=== PATIENT | female | born 1950 | race Two or more races ===

== ENCOUNTER → 2019-02-04 | Outpatient (CLI) | payer OTHER ==
[~2019-02-04] MED LIST: ALPRAZOLAM0.5 MG PO; ALPRAzolam 0.25 MG TABLET PO; ATACAND HCT 11 UDTAB PO; ATACAND4 MG PO; Atacand PO; BACTROBAN OINT NASAL; CEFEPIME HCL2 G/VIAL IV; CIPRO I.V.400 MG/201 IV; CLARINEX5 MG/TAB PO; CRESTOR10 MG PO; Cozaar PO; DAKIN S TOP; DAKIN'S473 ML TOP; FAMOTIDINE20 MG PO; HIBICLENS TP; HumaLOG 100 UNIT/1 ML (3ML) SUBCUTANEO; INTESTINEX1 CA1 PO; INTESTINEX680 MG PO; LANTUS SOL100 UNIT/1 SUBCUTANEO; LEVAQUIN-D5W5 MG/M2 IV; LYRICA50 MG; LYRICA50 MG PO; Lantus 1000 U/10 ML SUBCUTANEO; NOVOLOG MIX 70/33 M1 SQ; OXYC1TAB9 PO; PAXIL20 MG PO; PIPERACILLIN IV; PNEU16DI2; Paxil PO; SYNTHROID50 MCG PO; SYNTHROID88 MCG PO; Synthroid PO; TAZOBACTAM IV; Ultracet Tablet PO; VANCOCIN 1GM/VIALMATE IV; VANCOMYCIN 5 MG/ML IV; VASOTEC 20MG TAB PO; VENALIV CAPLET1 EACH; ZANTAC25 MG/1 ML
== END | disposition home or self-care (01) ==
LOC: RAD 15:00
DX: L97.428 Non-pressure chronic ulcer of left heel and midfoot with other specified severity (principal); B99.8 Other infectious disease

== ENCOUNTER 2019-02-05 16:19 | Emergency (ER) | payer OTHER ==
[~2019-02-05] VITALS: Ht 165.1 cm; Wt 59.0 kg
== END 2019-02-05 19:54 | disposition home or self-care (01) ==
LOC: ER 16:19
DX: L03.116 Cellulitis of left lower limb (principal); B95.1 Streptococcus, group B, as the cause of diseases classified elsewhere; B95.61 Methicillin susceptible Staphylococcus aureus infection as the cause of diseases classified elsewhere; B96.89 Other specified bacterial agents as the cause of diseases classified elsewhere

== ENCOUNTER 2019-02-25 17:50 | Inpatient (IN) | payer OTHER ==
[~2019-02-25] VITALS: Ht 165.1 cm; Wt 57.6 kg
--- NOTE | 2019-02-25 18:03 | NUR ---
PTE REFERIDO POR DR CUFF POR ULCERA EN PIE ROXANA SE ALISSON S/V YSE UBIAC EN AREA DE OBSERVACION
--- NOTE | 2019-02-25 20:38 | NUR ---
EVALUA PTE. SE ORIENTA A PTE SOBRE [place] MEDICO. PTE REFIERE COMPRENDER. SE REALIZAN MUESTRAS DE LABORATORIO BAJO MEDIDAS ASEPTICAS. SE ADMINISTRAN MEDICAMENTOS FRANCISCO ORDEN MEDICA. SE NOTIFICA ROO[place]VELT X.
== END 2019-03-09 20:04 | disposition home or self-care (01) | DRG 623 ==
LOC: ER 17:50 → MEDJ 19:24
PROVIDERS: ADMIT Internal Medicine
PROC: 8E0ZXY6 Isolation (ICD-10-PCS; 2019-02-25)
PROC: BQ3MZZZ Magnetic Resonance Imaging (MRI) of Left Foot (ICD-10-PCS; 2019-02-26)
PROC: 0JBR0ZZ Excision of Left Foot Subcutaneous Tissue and Fascia, Open Approach (ICD-10-PCS; principal; 2019-02-28)
PROC: 02HV33Z Insertion of Infusion Device into Superior Vena Cava, Percutaneous Approach (ICD-10-PCS; 2019-02-28)
PROC: 05HB33Z Insertion of Infusion Device into Right Basilic Vein, Percutaneous Approach (ICD-10-PCS; 2019-02-28)
PROC: B54MZZZ Ultrasonography of Right Upper Extremity Veins (ICD-10-PCS; 2019-03-05)
DX: E11.621 Type 2 diabetes mellitus with foot ulcer (principal); L97.428 Non-pressure chronic ulcer of left heel and midfoot with other specified severity; L02.612 Cutaneous abscess of left foot; M86.672 Other chronic osteomyelitis, left ankle and foot; L03.116 Cellulitis of left lower limb; I83.223 Varicose veins of left lower extremity with both ulcer of ankle and inflammation; M86.172 Other acute osteomyelitis, left ankle and foot; L97.328 Non-pressure chronic ulcer of left ankle with other specified severity; I83.024 Varicose veins of left lower extremity with ulcer of heel and midfoot; I69.398 Other sequelae of cerebral infarction; R20.8 Other disturbances of skin sensation; E11.69 Type 2 diabetes mellitus with other specified complication; E03.8 Other specified hypothyroidism; E11.65 Type 2 diabetes mellitus with hyperglycemia; Z45.2 Encounter for adjustment and management of vascular access device; B95.62 Methicillin resistant Staphylococcus aureus infection as the cause of diseases classified elsewhere

== ENCOUNTER → 2019-03-25 | Outpatient (CLI) | payer OTHER | END | disposition home or self-care (01) | LOC: RAD 15:36 | DX: M19.072 Primary osteoarthritis, left ankle and foot (principal) ==

== ENCOUNTER 2020-05-04 12:45 | Outpatient (CLI) | payer OTHER | END 2020-05-04 12:49 | disposition home or self-care (01) | LOC: LAB 12:45 | PROVIDERS: ATTEND Surgery | DX: Z03.818 Encounter for observation for suspected exposure to other biological agents ruled out (principal); R05 Cough; R50.9 Fever, unspecified ==

== ENCOUNTER 2022-07-25 09:53 | Outpatient (CLI) | payer OTHER | END 2022-07-25 09:54 | disposition home or self-care (01) | LOC: NUCLEAR 09:53 | PROVIDERS: ATTEND Surgery | DX: I73.9 Peripheral vascular disease, unspecified (principal) ==

== ENCOUNTER 2023-02-26 14:45 | Emergency (ER) | payer OTHER ==
[~2023-02-26] VITALS: Ht 165.1 cm; Wt 59.0 kg
== END 2023-02-26 16:52 | disposition home or self-care (01) ==
LOC: ER 14:45
DX: M25.511 Pain in right shoulder (principal)
CPT/HCPCS: 96372; 99283; J1885

== ENCOUNTER 2023-03-20 10:45 | Outpatient (CLI) | payer OTHER | END 2023-03-20 10:46 | disposition home or self-care (01) | LOC: SONOGRAMA 10:45 | PROVIDERS: ATTEND General Practice | DX: M75.01 Adhesive capsulitis of right shoulder (principal) ==

== ENCOUNTER 2023-05-08 11:13 | Outpatient (CLI) | payer OTHER | END 2023-05-08 11:23 | disposition home or self-care (01) | LOC: EKG 11:13 | DX: I10 Essential (primary) hypertension (principal); L97.523 Non-pressure chronic ulcer of other part of left foot with necrosis of muscle ==

== ENCOUNTER 2023-05-08 11:58 | Outpatient (CLI) | payer OTHER | END 2023-05-08 11:59 | disposition home or self-care (01) | LOC: NUCLEAR 11:58 | DX: I10 Essential (primary) hypertension (principal); L97.523 Non-pressure chronic ulcer of other part of left foot with necrosis of muscle ==

== ENCOUNTER 2024-02-14 15:21 | Emergency (ER) | payer OTHER ==
[~2024-02-14] VITALS: Ht 165.1 cm; Wt 59.0 kg
[2024-02-14] MEDS ORDERED: ELIQUIS5 MG PO (16:00)
[2024-02-14] MEDS ORDERED: ADULT LOW DOSE81 M1 PO (16:00)
[2024-02-14] MEDS ORDERED: 0.9 % SODIUM CHLORIDE 1,000 ML IV SCH (16:30)
[2024-02-14 17:58] LABS: HEMATOCRIT 26.4 % (36.0-45.00); MEAN CELL VOLUME 76.8 fL (80.00-100.00); MEAN CORPUSCULAR HEMOGLOBIN 25.2 pg (27.00-32.0); MEAN CORPUSCULAR HGB CONC 32.8 g/dl (32.0-36.0); PLATELET COUNT 326 K/uL (150-450); RED BLOOD COUNT 3.44 M/uL (4.00-6.00)
[2024-02-14 17:59] LABS: HEMOGLOBIN 8.7 g/dL (12.0-15.00); RED CELL DISTRIBUTION WIDTH 19.1 % (11.5-14.5)
== END 2024-02-14 19:11 | disposition home or self-care (01) ==
LOC: ER 15:23
PROVIDERS: Emergency Medicine
DX: D64.9 Anemia, unspecified (principal); I10 Essential (primary) hypertension; E11.9 Type 2 diabetes mellitus without complications; Z79.4 Long term (current) use of insulin; Z91.018 Allergy to other foods
CPT/HCPCS: 36415; 96365; 96366; 99282; J7030

== ENCOUNTER 2024-02-18 13:12 | Inpatient (IN) | payer OTHER ==
[~2024-02-18] VITALS: Ht 165.1 cm; Wt 54.4 kg
[~2024-02-18 13:12] MED LIST changes: +ADULT LOW DOSE81 M1 PO; +ELIQUIS5 MG PO
--- NOTE | 2024-02-18 13:25 | NUR ---
SE RECIBE PTE ALERTA Y ORIENTADA X3 EN AMBULANCIA SIN COMPANIA DE FAMILIAR. PERSONAL DE AMBULANCIA REFIEREN KIRA SIDO ACTIVADOS POR HIPOTENSION Y QUE ENCONTRARON A PTE EN EL SUELO DE RICE HOGAR. AL MOMENTO DE TRIAGE PTE NO PRESENTA HIPOTENSION. SE OBSERVA BENDAJE EN AMBOS PIES, PUES PTE TIENE ULCERAS EN LOS MISMOS. SE MIDEN SV Y SE UBICA.
[2024-02-18] MEDS ORDERED: 0.9 % SODIUM CHLORIDE 500 ML IV ONE (15:45)
--- NOTE | 2024-02-18 16:43 | NUR ---
SE RALIZA LABORATORIOS FRANCISCO ORDEN MEDICA BAJO MEDIDAS ASEPTICAS. SE ORIENTA A PTE QUIEN REFIERE ENTENDER Y ACEPTAR.
[2024-02-18 16:46] LABS: HEMOGLOBIN 9.2 g/dL (12.0-15.00); MEAN CELL VOLUME 75.9 fL (80.00-100.00); MEAN CORPUSCULAR HEMOGLOBIN 24.9 pg (27.00-32.0); MEAN CORPUSCULAR HGB CONC 32.8 g/dl (32.0-36.0); PLATELET COUNT 332 K/uL (150-450); RED BLOOD COUNT 3.69 M/uL (4.00-6.00); RED CELL DISTRIBUTION WIDTH 18.7 % (11.5-14.5)
[2024-02-18 16:52] LABS: ERYTHROCYTE SEDIMENTATION RATE > 130 mm/hr
[2024-02-18 17:37] LABS: ALBUMIN 1.9 gm/dL (3.4-5.0); BILIRUBIN TOTAL 0.37 mg/dL (0.3-1.2); CALCIUM 7.7 mg/dL (8.5-10.1); CREATININE SERUM 0.77 mg/dL (0.55-1.02); GFR 73.48; GLOBULINA 4.8 G/DL (2.4-3.5); POTASSIUM 4.36 mEq/L (3.5-5.1); TOTAL PROTEIN 6.7 gm/dL (6.4-8.2)
[2024-02-18 17:41] LABS: C-REACTIVE PROTEIN 9.51 MG/DL (0.00-0.29)
[2024-02-18] MEDS ORDERED: OSELTAMIVIR PHOSPHATE 75 MG CAPSULE PO ONE (18:30)
[2024-02-18] MEDS ORDERED: ASPIRIN 81 MG TAB.CHEW PO ONE (18:30)
[2024-02-18] MEDS ORDERED: levoFLOXacin IN DEXTROSE 5 % 5 MG/ML PIGGYBAG IV ONE (18:45)
[2024-02-18 20:24] LABS: INR 1.56; PARTIAL THROMBOPLASTIN TIME 45.6 SECONDS (22.0-34.0); PROTHROMBIN TIME 16.5 SECONDS (9.0-11.5)
--- NOTE | 2024-02-18 21:22 | NUR ---
SE RECIBE PACIENTE EN UNIDAD DE CHEST PAIN, CAMA JAYESH 16. SE CONECTA A MONITOR CARDIACO Y OXIMETRIA DE PULSO CONTINUA PRESENTANDO VITALES DE BP: 115/58 (72), HR: 84, SPO2: 95%. PACIENTE SE ENCUENTRA CANALIZADA EN RA CON ANGIO #22 QUE SE ENCUENTRA PATENTE, CALLY DE EDEMA Y PROCESOS INFECIOSOS POR DONDE SE ENCUENTRA BAJANDO UN 0.9NSS A 75ML/HR. EXTREMIDADES SUPERIORES E INFERIORES LIBRES DE EDEMA. SE OBSERVAN GASAS EN AMBOS TALONES. PENDIENTE CONSULTA CON MEDICINA INTERNA.
[2024-02-18] MEDS ORDERED: OSELTAMIVIR PHOSPHATE 75 MG CAPSULE PO SCH (21:49)
[2024-02-18] MEDS ORDERED: levoFLOXacin IN DEXTROSE 5 % 150 ML IV SCH (21:50)
[2024-02-18] MEDS ORDERED: ACETAMINOPHEN 325 MG TABLET PO PRN (22:00)
[2024-02-18] MEDS ORDERED: ONDANSETRON HCL 4 MG in 0.9 % SODIUM CHLORIDE 50 ML IV PRN (22:00)
[2024-02-18] MEDS ORDERED: ASPIRIN 81 MG TABLET.EC PO SCH (22:04)
[2024-02-18] MEDS ORDERED: APIXABAN 5 MG TABLET PO SCH (22:05)
[2024-02-18 22:14] VITALS: BP 115/58; O2SAT 100
[2024-02-18] MEDS ORDERED: DEXTROSE 50 % IN WATER 0.5 G/ML DISP.SYRIN IV PRN (22:15)
[2024-02-18] MEDS ORDERED: 0.9 % SODIUM CHLORIDE 1,000 ML IV SCH (22:15)
[2024-02-18] MEDS ORDERED: INSULIN LISPRO 1,000 UNIT/10 ML UNITS SUBCUTANEO PRN (22:15)
[2024-02-18] MEDS ORDERED: CANDESARTAN CILEXETIL 8 MG TAB PO SCH (22:15)
[2024-02-18] MEDS ORDERED: FUROsemide 20 MG/2 ML VIAL IV SCH (22:21)
[2024-02-18 23:13] VITALS: BP 104/68; O2SAT 100
[2024-02-19] VITALS (7 sets, daily range): BP systolic 106–131; BP diastolic 48–65; O2SAT 96–100
[2024-02-19 00:03] LABS: ABG PH 7.406 (7.35-7.45)
[2024-02-19 00:04] LABS: ABG PO2 109.2 mmHg (80-100); ABG pCO2 33.5 mmHg (35-45); BASE EXCESS -3.2 mmol/l; BICARBONATE 20.6 mmol/l (23-25); SaO2 98.2 %; Tco2 21.6 mmol/l
[2024-02-19 00:05] LABS: allen test SATISFACTORY; o2 21 %; puncture site RADIAL LEFT
[2024-02-19 00:17] LABS: URINE APPEARANCE Cloudy; URINE BILIRRUBIN Negative (NEGATIVE); URINE BLOOD Negative; URINE COLOR Yellow; URINE GLUCOSE Negative (NEGATIVE); URINE KETONE Trace (NEGATIVE); URINE LEUKOCYTE Small; URINE NITRATE Negative; URINE PROTEIN 30 (NEGATIVE); URINE UROBILINOGEN 0.2 E.U./dl
[2024-02-19 00:21] LABS: URINE BACTERIA 516.5 uL (0.0-1933); URINE CAST 7.32 uL (0.0-1.40); URINE EPITHELIAL CELLS 39.4 uL (0.0-38.8); URINE RBC 2.1 uL (0.0-20.8); URINE WBC 82.3 uL (0.0-23.2)
[2024-02-19] MEDS ORDERED: LEVOTHYROXINE SODIUM 50 MCG TABLET PO SCH (06:00)
[2024-02-19] MEDS ORDERED: ACETAMINOPHEN 500 MG GEL..CAP PO PRN (07:30)
[2024-02-19] MEDS ORDERED: MEROPENEM 500 MG/VIAL VIAL IV SCH (14:00)
[2024-02-19] MEDS ORDERED: VANCOMYCIN HCL 5 MG/ML REDILUIDO IV SCH (17:00)
[2024-02-20] VITALS (7 sets, daily range): BP systolic 114–145; BP diastolic 66–80; O2SAT 96–99
[2024-02-20 06:31] LABS: MEAN CELL VOLUME 75.3 fL (80.00-100.00); MEAN CORPUSCULAR HGB CONC 33.4 g/dl (32.0-36.0); PLATELET COUNT 256 K/uL (150-450); RED BLOOD COUNT 3.01 M/uL (4.00-6.00); RED CELL DISTRIBUTION WIDTH 18.5 % (11.5-14.5)
[2024-02-20 07:08] LABS: ALBUMIN 1.5 gm/dL (3.4-5.0); BILIRUBIN TOTAL 0.29 mg/dL (0.3-1.2); CREATININE SERUM 0.58 mg/dL (0.55-1.02); GFR 101.9; GLOBULINA 3.8 G/DL (2.4-3.5); MAGNESIUM 1.6 mg/dL (1.8-2.4); PHOSPHOROUS 2.1 mg/dL (2.5-4.9); POTASSIUM 3.87 mEq/L (3.5-5.1); TOTAL PROTEIN 5.3 gm/dL (6.4-8.2)
[2024-02-20 07:10] LABS: C-REACTIVE PROTEIN 6.23 MG/DL (0.00-0.29); CALCIUM 6.8 mg/dL (8.5-10.1)
[2024-02-20 08:00] LABS: HEMATOCRIT 22.7 % (36.0-45.00); MEAN CORPUSCULAR HEMOGLOBIN 25.2 pg (27.00-32.0)
[2024-02-20 08:01] LABS: HEMOGLOBIN 7.6 g/dL (12.0-15.00)
[2024-02-21] VITALS (9 sets, daily range): BP systolic 111–148; BP diastolic 69–75; O2SAT 85–99
[2024-02-21] MEDS ORDERED: FUROsemide 20 MG/2 ML VIAL IV STA (08:17)
[2024-02-21] MEDS ORDERED: FUROsemide 20 MG/2 ML VIAL IV SCH (08:30)
[2024-02-22] VITALS (7 sets, daily range): BP systolic 110–141; BP diastolic 68–83; O2SAT 90–97
[2024-02-22] MEDS ORDERED: NITROGLYCERIN IN 5 % DEXTROSE 50 MG/250 ML KIT IV SCH (08:30)
[2024-02-22] MEDS ORDERED: NITROGLYCERIN IN 5 % DEXTROSE 250 ML IV SCH (10:00)
[2024-02-22 16:01] LABS: HEMATOCRIT 35.1 % (36.0-45.00); HEMOGLOBIN 11.7 g/dL (12.0-15.00); MEAN CELL VOLUME 79.1 fL (80.00-100.00); MEAN CORPUSCULAR HEMOGLOBIN 26.5 pg (27.00-32.0); MEAN CORPUSCULAR HGB CONC 33.4 g/dl (32.0-36.0); PLATELET COUNT 230 K/uL (150-450); RED BLOOD COUNT 4.44 M/uL (4.00-6.00); RED CELL DISTRIBUTION WIDTH 18.2 % (11.5-14.5)
[2024-02-22 16:30] LABS: ALBUMIN 1.6 gm/dL (3.4-5.0); BILIRUBIN TOTAL 0.35 mg/dL (0.3-1.2); C-REACTIVE PROTEIN 7.94 MG/DL (0.00-0.29); CALCIUM 7.2 mg/dL (8.5-10.1); CREATININE SERUM 0.65 mg/dL (0.55-1.02); GFR 89.35; GLOBULINA 4.3 G/DL (2.4-3.5); MAGNESIUM 1.5 mg/dL (1.8-2.4); PHOSPHOROUS 2.5 mg/dL (2.5-4.9); POTASSIUM 4.33 mEq/L (3.5-5.1); TOTAL PROTEIN 5.9 gm/dL (6.4-8.2)
[2024-02-22 17:40] LABS: CKMB 7.3 NG/ML (0.5-3.6)
[2024-02-23] VITALS (8 sets, daily range): BP systolic 125–141; BP diastolic 59–82; O2SAT 92–97
[2024-02-23] MEDS ORDERED: SENNOSIDES 1 TAB TABLET PO PRN (10:30)
[2024-02-24] VITALS (8 sets, daily range): BP systolic 128–149; BP diastolic 79–86; O2SAT 96–99
[2024-02-24] MEDS ORDERED: PATIENTS OWN MEDICATION (MEDICAMENTO EN PISO) PO SCH (09:00)
[2024-02-24 15:09] LABS: ABG PH 7.503 (7.35-7.45); ABG PO2 57.9 mmHg (80-100); ABG pCO2 43.1 mmHg (35-45); BASE EXCESS 8.9 mmol/l; BICARBONATE 33.1 mmol/l (23-25); SaO2 92.9 %; Tco2 34.4 mmol/l
[2024-02-24 15:10] LABS: allen test SATISFACTORY; o2 21 %; puncture site RADIAL RIGHT
[2024-02-25] VITALS (10 sets, daily range): BP systolic 110–121; BP diastolic 64–73; O2SAT 95–100
[2024-02-25 07:27] LABS: ALBUMIN 1.6 gm/dL (3.4-5.0); BILIRUBIN TOTAL 0.8 mg/dL (0.3-1.2); CALCIUM 7.9 mg/dL (8.5-10.1); CREATININE SERUM 0.37 mg/dL (0.55-1.02); GFR 171.19; GLOBULINA 4.5 G/DL (2.4-3.5); MAGNESIUM 1.5 mg/dL (1.8-2.4); PHOSPHOROUS 2.2 mg/dL (2.5-4.9); POTASSIUM 3.5 mEq/L (3.5-5.1); TOTAL PROTEIN 6.1 gm/dL (6.4-8.2)
[2024-02-25 07:30] LABS: HEMATOCRIT 31.1 % (36.0-45.00); HEMOGLOBIN 10.5 g/dL (12.0-15.00); MEAN CELL VOLUME 78.1 fL (80.00-100.00); MEAN CORPUSCULAR HEMOGLOBIN 26.3 pg (27.00-32.0); MEAN CORPUSCULAR HGB CONC 33.7 g/dl (32.0-36.0); PLATELET COUNT 222 K/uL (150-450); RED BLOOD COUNT 3.99 M/uL (4.00-6.00); RED CELL DISTRIBUTION WIDTH 19.1 % (11.5-14.5)
[2024-02-25 07:31] LABS: C-REACTIVE PROTEIN 10.3 MG/DL (0.00-0.29)
[2024-02-26] VITALS (8 sets, daily range): BP systolic 130–143; BP diastolic 79–81; O2SAT 96–99
[2024-02-26] MEDS ORDERED: SODIUM CHLORIDE 0.45 % 1,000 ML IV SCH (07:15)
[2024-02-27] VITALS (8 sets, daily range): BP systolic 119–131; BP diastolic 69–74; O2SAT 92–99
[2024-02-27] MEDS ORDERED: LEVALBUTEROL HCL 0.63 MG/3 ML SOLUTION IH SCH (12:09)
[2024-02-27] MEDS ORDERED: METHYLPREDNISOLONE SOD SUCC 40 MG VIAL IV SCH (13:00)
[2024-02-27] MEDS ORDERED: IPRATROPIUM BROMIDE 0.5 MG/2.5 ML AMPUL.NEB IH SCH (13:00)
[2024-02-27] MEDS ORDERED: LINEZOLID IN DEXTROSE 5% 300 ML IV SCH (17:00)
[2024-02-28] VITALS (9 sets, daily range): BP systolic 134–150; BP diastolic 82–88; O2SAT 93–99
[2024-02-28 06:42] LABS: HEMOGLOBIN 11.3 g/dL (12.0-15.00); MEAN CELL VOLUME 80.2 fL (80.00-100.00); MEAN CORPUSCULAR HEMOGLOBIN 25.9 pg (27.00-32.0); MEAN CORPUSCULAR HGB CONC 32.3 g/dl (32.0-36.0); PLATELET COUNT 242 K/uL (150-450); RED BLOOD COUNT 4.36 M/uL (4.00-6.00); RED CELL DISTRIBUTION WIDTH 19.7 % (11.5-14.5)
[2024-02-28 07:20] LABS: ALBUMIN 1.6 gm/dL (3.4-5.0); BILIRUBIN TOTAL 0.63 mg/dL (0.3-1.2); CALCIUM 7.7 mg/dL (8.5-10.1); CREATININE SERUM 0.61 mg/dL (0.55-1.02); GFR 96.14; POTASSIUM 4.55 mEq/L (3.5-5.1); TOTAL PROTEIN 6.6 gm/dL (6.4-8.2)
[2024-02-28 07:21] LABS: C-REACTIVE PROTEIN 11.2 MG/DL (0.00-0.29)
[2024-02-29] VITALS (9 sets, daily range): BP systolic 135–160; BP diastolic 79–85; O2SAT 7–96
[2024-02-29 12:56] LABS: HEMATOCRIT 34.1 % (36.0-45.00); HEMOGLOBIN 11.1 g/dL (12.0-15.00); MEAN CELL VOLUME 79.4 fL (80.00-100.00); MEAN CORPUSCULAR HGB CONC 32.7 g/dl (32.0-36.0); PLATELET COUNT 259 K/uL (150-450); RED BLOOD COUNT 4.29 M/uL (4.00-6.00); RED CELL DISTRIBUTION WIDTH 19.2 % (11.5-14.5)
[2024-03-01] VITALS (8 sets, daily range): BP systolic 115–132; BP diastolic 63–73; O2SAT 90–100
[2024-03-01] MEDS ORDERED: DOCUSATE CALCIUM 240 MG CAPSULE PO SCH (12:53)
[2024-03-02] VITALS (8 sets, daily range): BP systolic 117–121; BP diastolic 67–72; O2SAT 94–99
[2024-03-02 15:44] LABS: HEMATOCRIT 37.5 % (36.0-45.00); HEMOGLOBIN 11.7 g/dL (12.0-15.00); MEAN CELL VOLUME 80.6 fL (80.00-100.00); MEAN CORPUSCULAR HEMOGLOBIN 25.2 pg (27.00-32.0); MEAN CORPUSCULAR HGB CONC 31.2 g/dl (32.0-36.0); PLATELET COUNT 244 K/uL (150-450); RED BLOOD COUNT 4.65 M/uL (4.00-6.00); RED CELL DISTRIBUTION WIDTH 19.7 % (11.5-14.5)
[2024-03-02 18:08] LABS: ERYTHROCYTE SEDIMENTATION RATE 54 mm/hr
[2024-03-03 03:14] VITALS: BP 129/88; O2SAT 95
[2024-03-03 06:00] VITALS: O2SAT 99
[2024-03-03 08:33] VITALS: BP 141/69; O2SAT 98
[2024-03-03 09:57] VITALS: O2SAT 99
[2024-03-03 10:09] LABS: ALBUMIN 1.9 gm/dL (3.4-5.0); BILIRUBIN TOTAL 0.81 mg/dL (0.3-1.2); CREATININE SERUM 0.73 mg/dL (0.55-1.02); GFR 78.15; GLOBULINA 4.4 G/DL (2.4-3.5); MAGNESIUM 1.9 mg/dL (1.8-2.4); PHOSPHOROUS 2.3 mg/dL (2.5-4.9); POTASSIUM 4.72 mEq/L (3.5-5.1); TOTAL PROTEIN 6.3 gm/dL (6.4-8.2)
[2024-03-03 10:24] LABS: C-REACTIVE PROTEIN 5.39 MG/DL (0.00-0.29)
[2024-03-03 19:44] VITALS: BP 119/59
[2024-03-03] MEDS ORDERED: METHYLPREDNISOLONE SOD SUCC 40 MG VIAL IV SCH (21:00)
[2024-03-04 02:20] VITALS: BP 119/26; O2SAT 95
[2024-03-04 09:34] VITALS: BP 131/69; O2SAT 95
[2024-03-04 17:43] VITALS: BP 127/67
[2024-03-04] MEDS ORDERED: LINEZOLID 600 MG TABLET PO SCH (21:00)
[2024-03-05 02:51] VITALS: BP 136/81; O2SAT 100
[2024-03-05 07:40] LABS: HEMATOCRIT 32.5 % (36.0-45.00); HEMOGLOBIN 10.9 g/dL (12.0-15.00); MEAN CELL VOLUME 78.2 fL (80.00-100.00); MEAN CORPUSCULAR HEMOGLOBIN 26.2 pg (27.00-32.0); MEAN CORPUSCULAR HGB CONC 33.5 g/dl (32.0-36.0); PLATELET COUNT 171 K/uL (150-450); RED BLOOD COUNT 4.16 M/uL (4.00-6.00); RED CELL DISTRIBUTION WIDTH 20.2 % (11.5-14.5)
[2024-03-05 08:14] LABS: ALBUMIN 1.7 gm/dL (3.4-5.0); BILIRUBIN TOTAL 0.62 mg/dL (0.3-1.2); CALCIUM 7.6 mg/dL (8.5-10.1); CREATININE SERUM 0.65 mg/dL (0.55-1.02); GFR 89.35; POTASSIUM 4.32 mEq/L (3.5-5.1); TOTAL PROTEIN 5.7 gm/dL (6.4-8.2)
[2024-03-05 08:34] VITALS: BP 125/63; O2SAT 96
[2024-03-05] MEDS ORDERED: IPRATROPIUM BROMIDE 0.5 MG/2.5 ML AMPUL.NEB IH SCH (09:00)
[2024-03-05 19:40] VITALS: BP 111/72; O2SAT 98
[2024-03-06] VITALS: BP 116/58; O2SAT 95
[2024-03-06 08:53] VITALS: BP 125/68; BP 150/90; O2SAT 97; O2SAT 99
[2024-03-06 18:27] VITALS: BP 110/70; O2SAT 95
[2024-03-07 02:11] VITALS: BP 115/70; O2SAT 95
[2024-03-07 07:45] LABS: ALBUMIN 1.6 gm/dL (3.4-5.0); BILIRUBIN TOTAL 0.43 mg/dL (0.3-1.2); CALCIUM 7.9 mg/dL (8.5-10.1); CREATININE SERUM 0.67 mg/dL (0.55-1.02); GFR 86.27; GLOBULINA 3.4 G/DL (2.4-3.5); POTASSIUM 4.45 mEq/L (3.5-5.1)
[2024-03-07 09:52] VITALS: BP 115/58; O2SAT 95
[2024-03-07 17:24] VITALS: BP 130/70; O2SAT 98
[2024-03-08 01:05] VITALS: BP 107/57; O2SAT 100
[2024-03-08 07:24] LABS: ALBUMIN 1.7 gm/dL (3.4-5.0); BILIRUBIN TOTAL 0.52 mg/dL (0.3-1.2); CALCIUM 7.9 mg/dL (8.5-10.1); CREATININE SERUM 0.72 mg/dL (0.55-1.02); GFR 79.4; GLOBULINA 3.5 G/DL (2.4-3.5); MAGNESIUM 1.8 mg/dL (1.8-2.4); PHOSPHOROUS 2.7 mg/dL (2.5-4.9); POTASSIUM 4.02 mEq/L (3.5-5.1); TOTAL PROTEIN 5.2 gm/dL (6.4-8.2)
[2024-03-08 07:28] LABS: HEMATOCRIT 28.7 % (36.0-45.00); HEMOGLOBIN 9.4 g/dL (12.0-15.00); MEAN CELL VOLUME 78.6 fL (80.00-100.00); MEAN CORPUSCULAR HEMOGLOBIN 25.9 pg (27.00-32.0); MEAN CORPUSCULAR HGB CONC 32.9 g/dl (32.0-36.0); PLATELET COUNT 128 K/uL (150-450); RED BLOOD COUNT 3.66 M/uL (4.00-6.00); RED CELL DISTRIBUTION WIDTH 19.9 % (11.5-14.5)
[2024-03-08 07:45] LABS: C-REACTIVE PROTEIN 1.08 MG/DL (0.00-0.29)
[2024-03-08 10:32] VITALS: BP 126/70; O2SAT 98
[2024-03-08 17:52] VITALS: BP 103/63; O2SAT 100
[2024-03-09 01:44] VITALS: BP 120/63; O2SAT 98
[2024-03-09 09:08] VITALS: BP 133/70; O2SAT 98
[2024-03-09 18:58] VITALS: BP 115/58
[2024-03-10 01:48] VITALS: BP 120/68; O2SAT 100
[2024-03-10 06:17] LABS: HEMATOCRIT 27.7 % (36.0-45.00); HEMOGLOBIN 9.2 g/dL (12.0-15.00); MEAN CELL VOLUME 78.7 fL (80.00-100.00); MEAN CORPUSCULAR HEMOGLOBIN 26.2 pg (27.00-32.0); MEAN CORPUSCULAR HGB CONC 33.3 g/dl (32.0-36.0); RED BLOOD COUNT 3.53 M/uL (4.00-6.00); RED CELL DISTRIBUTION WIDTH 20.1 % (11.5-14.5)
[2024-03-10 06:23] LABS: PLATELET COUNT 109 K/uL (150-450)
[2024-03-10 06:31] LABS: ERYTHROCYTE SEDIMENTATION RATE 30 mm/hr
[2024-03-10 06:42] LABS: ALBUMIN 1.6 gm/dL (3.4-5.0); BILIRUBIN TOTAL 0.47 mg/dL (0.3-1.2); CALCIUM 7.7 mg/dL (8.5-10.1); CREATININE SERUM 0.64 mg/dL (0.55-1.02); GFR 90.96; GLOBULINA 3.2 G/DL (2.4-3.5); MAGNESIUM 1.6 mg/dL (1.8-2.4); PHOSPHOROUS 2.1 mg/dL (2.5-4.9); POTASSIUM 3.91 mEq/L (3.5-5.1); TOTAL PROTEIN 4.8 gm/dL (6.4-8.2)
[2024-03-10 06:44] LABS: C-REACTIVE PROTEIN 0.92 MG/DL (0.00-0.29)
[2024-03-10 09:30] VITALS: BP 130/84; O2SAT 99
[2024-03-10 18:22] VITALS: BP 137/60
[2024-03-11 03:03] VITALS: BP 107/54; O2SAT 97
[2024-03-11 07:17] LABS: HEMATOCRIT 25.9 % (36.0-45.00); MEAN CELL VOLUME 77.4 fL (80.00-100.00); MEAN CORPUSCULAR HEMOGLOBIN 26.9 pg (27.00-32.0); MEAN CORPUSCULAR HGB CONC 34.7 g/dl (32.0-36.0); RED BLOOD COUNT 3.35 M/uL (4.00-6.00); RED CELL DISTRIBUTION WIDTH 20.3 % (11.5-14.5)
[2024-03-11 07:20] LABS: PLATELET COUNT 95 K/uL (150-450)
[2024-03-11 09:25] VITALS: BP 115/67; O2SAT 100
[2024-03-11 18:23] VITALS: BP 133/85; O2SAT 100
[2024-03-12 03:06] VITALS: BP 118/71; O2SAT 100
[2024-03-12 09:18] VITALS: BP 135/73; O2SAT 99
[2024-03-12 18:30] VITALS: BP 130/73; O2SAT 100
[2024-03-12] MEDS ORDERED: VANCOMYCIN HCL 1,000 MG VIAL IV SCH (21:00)
[2024-03-13 03:30] VITALS: BP 111/68; O2SAT 100
[2024-03-13 09:00] VITALS: BP 124/69; O2SAT 100
[2024-03-13] MEDS ORDERED: VANCOMYCIN HCL 5 MG/ML REDILUIDO IV SCH (11:00)
[2024-03-13 13:55] LABS: ABG PH 7.518 (7.35-7.45); ABG PO2 86.3 mmHg (80-100); ABG pCO2 35.7 mmHg (35-45); BASE EXCESS 5.5 mmol/l; BICARBONATE 28.4 mmol/l (23-25); SaO2 97.7 %; Tco2 29.5 mmol/l; o2 21 %; puncture site RADIAL LEFT
[2024-03-13 13:56] LABS: allen test SATISFACTORY
[2024-03-13] MEDS ORDERED: LACTULOSE 20 G/30 ML BLIST.PACK PO NR (17:00)
[2024-03-13] MEDS ORDERED: DOCUSATE CALCIUM 240 MG CAPSULE PO SCH (17:00)
[2024-03-13 17:02] VITALS: BP 97/57; O2SAT 96
[2024-03-13 18:25] LABS: HEMATOCRIT 26.1 % (36.0-45.00); MEAN CELL VOLUME 79.3 fL (80.00-100.00); MEAN CORPUSCULAR HGB CONC 32.9 g/dl (32.0-36.0); RED BLOOD COUNT 3.29 M/uL (4.00-6.00); RED CELL DISTRIBUTION WIDTH 20.3 % (11.5-14.5)
[2024-03-13 18:26] LABS: HEMOGLOBIN 8.6 g/dL (12.0-15.00); MEAN CORPUSCULAR HEMOGLOBIN 26.1 pg (27.00-32.0); PLATELET COUNT 85 K/uL (150-450)
[2024-03-13 18:58] LABS: ALBUMIN 1.8 gm/dL (3.4-5.0); BILIRUBIN TOTAL 0.39 mg/dL (0.3-1.2); CALCIUM 7.7 mg/dL (8.5-10.1); CREATININE SERUM 0.72 mg/dL (0.55-1.02); GFR 79.4; GLOBULINA 3.4 G/DL (2.4-3.5); POTASSIUM 4.29 mEq/L (3.5-5.1); TOTAL PROTEIN 5.2 gm/dL (6.4-8.2)
[2024-03-14 02:51] VITALS: BP 117/72; O2SAT 98
[2024-03-14 10:14] VITALS: BP 132/63; O2SAT 97
[2024-03-14 19:46] VITALS: BP 143/76
[2024-03-15 01:54] VITALS: BP 119/68; O2SAT 98
[2024-03-15 08:00] VITALS: BP 112/60; O2SAT 98
[2024-03-15 08:18] LABS: HEMATOCRIT 28.7 % (36.0-45.00); HEMOGLOBIN 9.5 g/dL (12.0-15.00); MEAN CELL VOLUME 80.7 fL (80.00-100.00); MEAN CORPUSCULAR HEMOGLOBIN 26.7 pg (27.00-32.0); MEAN CORPUSCULAR HGB CONC 33.1 g/dl (32.0-36.0); RED BLOOD COUNT 3.56 M/uL (4.00-6.00); RED CELL DISTRIBUTION WIDTH 19.9 % (11.5-14.5)
[2024-03-15 08:31] LABS: PLATELET COUNT 82 K/uL (150-450)
[2024-03-15 19:23] VITALS: BP 120/68
[2024-03-16 01:18] VITALS: BP 167/76
[2024-03-16] MEDS ORDERED: MINERAL OIL 30 ML BLIST.PACK PO SCH (06:00)
[2024-03-16] MEDS ORDERED: MAGNESIUM HYDROXIDE 30 ML BLIST.PACK PO SCH (06:00)
[2024-03-16] MEDS ORDERED: LACTULOSE 20 G/30 ML BLIST.PACK PO SCH (06:00)
[2024-03-16 09:26] VITALS: BP 137/78; O2SAT 99
[2024-03-16 15:37] LABS: COL EPI 84 SECONDS (82-175)
[2024-03-16] MEDS ORDERED: ACETAMINOPHEN 500 MG GEL..CAP PO SCH (17:22)
[2024-03-16] MEDS ORDERED: GABAPENTIN 300 MG CAPSULE PO SCH (17:22)
[2024-03-16 22:14] VITALS: BP 107/61
[2024-03-17 02:07] VITALS: BP 100/60; O2SAT 96
[2024-03-17 08:13] VITALS: BP 91/49; O2SAT 96
== END 2024-03-17 16:06 | disposition home or self-care (01) | DRG 255 ==
LOC: ER 13:12 → MEDJ 21:49 → SEC-K 21:49 → MEDJ 02-19 16:48
PROVIDERS: General Practice; Internal Medicine; Internal Medicine Infectious Disease; Nurse Practitioner Family; Student in an Organized Health Care Education/Training Program; ADMIT Internal Medicine; ATTEND Internal Medicine
PROC: B246ZZZ Ultrasonography of Right and Left Heart (ICD-10-PCS; 2024-02-18)
PROC: 4A12X4Z Monitoring of Cardiac Electrical Activity, External Approach (ICD-10-PCS; 2024-02-18)
PROC: 0JBR0ZZ Excision of Left Foot Subcutaneous Tissue and Fascia, Open Approach (ICD-10-PCS; 2024-02-20)
PROC: 0QBN0ZZ Excision of Right Metatarsal, Open Approach (ICD-10-PCS; 2024-02-20)
PROC: 30233N1 Transfusion of Nonautologous Red Blood Cells into Peripheral Vein, Percutaneous Approach (ICD-10-PCS; 2024-02-20)
PROC: BL31ZZZ Magnetic Resonance Imaging (MRI) of Lower Extremity Connective Tissue (ICD-10-PCS; 2024-02-21)
PROC: 02HV33Z Insertion of Infusion Device into Superior Vena Cava, Percutaneous Approach (ICD-10-PCS; 2024-02-21)
PROC: 3E04329 Introduction of Other Anti-infective into Central Vein, Percutaneous Approach (ICD-10-PCS; 2024-02-21)
PROC: BB24ZZZ Computerized Tomography (CT Scan) of Bilateral Lungs (ICD-10-PCS; 2024-02-24)
PROC: 0QBN0ZZ Excision of Right Metatarsal, Open Approach (ICD-10-PCS; 2024-02-26)
PROC: 3E0F7GC Introduction of Other Therapeutic Substance into Respiratory Tract, Via Natural or Artificial Opening (ICD-10-PCS; 2024-02-27)
PROC: B44HZZZ Ultrasonography of Bilateral Lower Extremity Arteries (ICD-10-PCS; 2024-03-12)
PROC: 0KBV0ZZ Excision of Right Foot Muscle, Open Approach (ICD-10-PCS; 2024-03-16)
PROC: 0LBV0ZZ Excision of Right Foot Tendon, Open Approach (ICD-10-PCS; 2024-03-16)
PROC: 0Y6V0Z0 Detachment at Right 4th Toe, Complete, Open Approach (ICD-10-PCS; principal; 2024-03-16 16:00)
DX: E11.52 Type 2 diabetes mellitus with diabetic peripheral angiopathy with gangrene (principal); I21.A1 Myocardial infarction type 2; J10.08 Influenza due to other identified influenza virus with other specified pneumonia; J12.89 Other viral pneumonia; I50.21 Acute systolic (congestive) heart failure; M86.671 Other chronic osteomyelitis, right ankle and foot; M86.672 Other chronic osteomyelitis, left ankle and foot; L03.115 Cellulitis of right lower limb; L97.515 Non-pressure chronic ulcer of other part of right foot with muscle involvement without evidence of necrosis; J91.8 Pleural effusion in other conditions classified elsewhere; E11.621 Type 2 diabetes mellitus with foot ulcer; L97.514 Non-pressure chronic ulcer of other part of right foot with necrosis of bone; L97.529 Non-pressure chronic ulcer of other part of left foot with unspecified severity; D64.89 Other specified anemias; D69.59 Other secondary thrombocytopenia; K59.00 Constipation, unspecified; B95.62 Methicillin resistant Staphylococcus aureus infection as the cause of diseases classified elsewhere; B95.2 Enterococcus as the cause of diseases classified elsewhere; L89.152 Pressure ulcer of sacral region, stage 2; I11.0 Hypertensive heart disease with heart failure; E03.9 Hypothyroidism, unspecified; Z95.820 Peripheral vascular angioplasty status with implants and grafts; Z79.4 Long term (current) use of insulin; Z87.891 Personal history of nicotine dependence

== ENCOUNTER 2024-03-24 10:06 | Emergency (ER) | payer OTHER ==
[~2024-03-24] VITALS: Ht 165.1 cm; Wt 61.2 kg
[2024-03-24] MEDS ORDERED: DEXTROSE 50 % IN WATER 0.5 G/ML VIAL IV ONE (11:15)
[2024-03-24] MEDS ORDERED: DEXTROSE 5%-LACTATED RINGERS 500 ML IV SCH (11:15)
[2024-03-24 11:36] LABS: HEMATOCRIT 32.9 % (36.0-45.00); HEMOGLOBIN 10.5 g/dL (12.0-15.00); MEAN CELL VOLUME 81.3 fL (80.00-100.00); MEAN CORPUSCULAR HGB CONC 31.9 g/dl (32.0-36.0); PLATELET COUNT 270 K/uL (150-450); RED BLOOD COUNT 4.05 M/uL (4.00-6.00)
[2024-03-24 12:30] LABS: ALBUMIN 2.1 gm/dL (3.4-5.0); BILIRUBIN TOTAL 0.42 mg/dL (0.3-1.2); CALCIUM 7.9 mg/dL (8.5-10.1); CREATININE SERUM 0.53 mg/dL (0.55-1.02); GFR 113.08; POTASSIUM 3.84 mEq/L (3.5-5.1); TOTAL PROTEIN 6.1 gm/dL (6.4-8.2)
== END 2024-03-24 16:17 | disposition home or self-care (01) ==
LOC: ER 10:06
PROVIDERS: Emergency Medicine
DX: E11.649 Type 2 diabetes mellitus with hypoglycemia without coma (principal); I10 Essential (primary) hypertension; Z79.4 Long term (current) use of insulin; Z91.018 Allergy to other foods
CPT/HCPCS: 36415; 96365; 99282; J3490

== ENCOUNTER 2024-09-23 13:04 | Inpatient (IN) | payer OTHER ==
[~2024-09-23] VITALS: Ht 165.1 cm; Wt 56.7 kg
[~2024-09-23 13:04] MED LIST changes: +ASPIRIN81 MG PO; +ATACAND16 MG PO; +CLARINEX2.5 MG/5 M PO; +LANTUS SOL100 UNIT/1 SQ; +LEVOTHYROXINE25 MCG PO; +PAXIL CR25 MG PO; +PLAVIX75 MG PO
--- NOTE | 2024-09-23 13:15 | NUR ---
PTE. REFIERE ULCERA CON SECRECIONES EN BALJIT ROXANA.
[2024-09-23] MEDS ORDERED: ACETAMINOPHEN 500 MG GEL..CAP PO ONE ×2 (15:30)
--- NOTE | 2024-09-23 16:37 | NUR ---
SE EDUCA A PTE SOBRE TX MEDICO, SE ALISSON MUESTRAS DE LABORATORIO UTILIZANDO MEDIDAS ASEPTICAS. SE ADMINISTRA MEDICAMENTO PO EL CUAL POTE TOLERA. SE NOTIFICA RX PENDIENTE.
[2024-09-23 16:39] LABS: BASO % 0.2 % (0.1-1.2); EOS # 0.25 (0.04-0.54); EOS % 2.6 % (0.7-7.0); LYMPH # 1.76 (1.18-3.74); LYMPH % 18.6 % (19.3-53.1); MEAN PLATELET VOLUME 9.50 fl (9.4-12.4); MONO # 0.59 (0.24-0.82); MONO % 6.2 % (4.7-12.5); NEUT # 6.80 (1.56-6.13); NEUT % 72.1 % (34.0-71.1); RED CELL DISTRIBUTION WIDTH 15.9 % (11.6-14.4)
[2024-09-23 17:02] LABS: COVID-19 AG NEGATIVE (NEGATIVE)
[2024-09-23 17:03] LABS: INR 1.28
[2024-09-23 17:09] LABS: ALT/SGPT 31.0 U/L (12-78); AST/SGOT 27.0 U/L (15-37); BILIRUBIN TOTAL 0.43 mg/dL (0.3-1.2); BUN CREA RATIO 30.0 (7.0-25.0); CREATININE SERUM 0.74 mg/dL (0.55-1.02); GFR 76.72; GLOBULINA 5.8 G/DL (2.4-3.5); GLUCOSE FASTING 156.0 mg/dL (65-100); OSMOLALITY SERUM 278.0 MOSM/KG (275-295)
[2024-09-23 17:13] LABS: ERYTHROCYTE SEDIMENTATION RATE > 130 mm/hr (0-30)
[2024-09-23] MEDS ORDERED: CEFTRIAXONE SODIUM 2,000 MG VIAL IV ONE (18:30)
[2024-09-23] MEDS ORDERED: CEFEPIME HCL 2,000 MG in DEXTROSE 5 % IN WATER 100 ML IV SCH (20:19)
[2024-09-23] MEDS ORDERED: VANCOMYCIN HCL 1,000 MG VIAL IV SCH (20:19)
[2024-09-23] MEDS ORDERED: INSULIN LISPRO 1,000 UNIT/10 ML UNITS SUBCUTANEO PRN (20:30)
[2024-09-23] MEDS ORDERED: ACETAMINOPHEN 500 MG GEL..CAP PO PRN (20:30)
[2024-09-23] MEDS ORDERED: DEXTROSE 50 % IN WATER 0.5 G/ML DISP.SYRIN IV PRN (20:30)
[2024-09-24 02:10] VITALS: BP 128/84
[2024-09-24 02:59] VITALS: BP 131/75; O2SAT 99
[2024-09-24] MEDS ORDERED: APIXABAN 5 MG TABLET PO SCH (05:00)
[2024-09-24] MEDS ORDERED: LEVOTHYROXINE SODIUM 50 MCG TABLET PO SCH (06:00)
[2024-09-24] MEDS ORDERED: FAMOTIDINE/PF 20 MG in 0.9 % SODIUM CHLORIDE 8 ML IV PUSH SCH (09:00)
[2024-09-24] MEDS ORDERED: CANDESARTAN CILEXETIL 16 MG TABLET PO SCH (09:00)
[2024-09-24] MEDS ORDERED: SOD FERRIC GLUC COMPLX/SUCROSE 62.5 MG in 0.9 % SODIUM CHLORIDE 50 ML IV SCH (09:45)
[2024-09-24 12:30] VITALS: BP 150/83; O2SAT 99
[2024-09-24] MEDS ORDERED: CEFEPIME HCL 2,000 MG VIAL ONE (15:47)
[2024-09-24 16:05] VITALS: BP 144/78; O2SAT 100
[2024-09-24] MEDS ORDERED: SIMVASTATIN 40 MG TABLET PO SCH (17:00)
[2024-09-25 00:33] VITALS: BP 121/68; O2SAT 97
[2024-09-25 04:59] LABS: BASO % 0.5 % (0.1-1.2); EOS # 0.46 (0.04-0.54); EOS % 5.9 % (0.7-7.0); LYMPH # 1.23 (1.18-3.74); LYMPH % 15.8 % (19.3-53.1); MEAN PLATELET VOLUME 9.70 fl (9.4-12.4); MONO # 0.46 (0.24-0.82); MONO % 5.9 % (4.7-12.5); NEUT # 5.57 (1.56-6.13); NEUT % 71.5 % (34.0-71.1); RED CELL DISTRIBUTION WIDTH 15.5 % (11.6-14.4)
[2024-09-25] MEDS ORDERED: VANCOMYCIN HCL 5 MG/ML REDILUIDO IV SCH (05:00)
[2024-09-25 05:55] LABS: ALT/SGPT 25.0 U/L (12-78); AST/SGOT 22.0 U/L (15-37); BILIRUBIN TOTAL 0.29 mg/dL (0.3-1.2); BUN CREA RATIO 28.0 (7.0-25.0); CREATININE SERUM 0.72 mg/dL (0.55-1.02); GFR 79.18; GLOBULINA 4.3 G/DL (2.4-3.5); GLUCOSE FASTING 152.0 mg/dL (65-100); OSMOLALITY SERUM 285.0 MOSM/KG (275-295)
[2024-09-25 10:24] VITALS: BP 120/60; O2SAT 97
[2024-09-25] MEDS ORDERED: MAGNESIUM SULFATE 1,000 MG in 0.9 % SODIUM CHLORIDE 50 ML IV ONE (14:30)
[2024-09-25] MEDS ORDERED: MAGNESIUM SULFATE/D5W 100 ML IV NR (16:00)
[2024-09-25 17:18] VITALS: BP 114/68
[2024-09-25 21:28] LABS: ob NEGATIVE (NEGATIVE)
[2024-09-26 00:50] VITALS: BP 130/66; O2SAT 98
[2024-09-26 10:02] VITALS: BP 117/68; O2SAT 98
[2024-09-26 17:43] VITALS: BP 142/68; O2SAT 100
[2024-09-27 00:45] VITALS: BP 152/82
[2024-09-27 10:21] VITALS: BP 147/65; O2SAT 99
[2024-09-27 12:30] LABS: BASO % 0.6 % (0.1-1.2); EOS # 0.41 (0.04-0.54); EOS % 6.0 % (0.7-7.0); LYMPH # 1.30 (1.18-3.74); LYMPH % 19.1 % (19.3-53.1); MEAN PLATELET VOLUME 11.00 fl (9.4-12.4); MONO # 0.40 (0.24-0.82); MONO % 5.9 % (4.7-12.5); NEUT # 4.65 (1.56-6.13); NEUT % 68.1 % (34.0-71.1); RED CELL DISTRIBUTION WIDTH 15.5 % (11.6-14.4)
[2024-09-27 17:56] VITALS: BP 172/76; O2SAT 96
[2024-09-27 19:44] VITALS: BP 132/65; O2SAT 95
[2024-09-28 00:48] VITALS: BP 147/75
[2024-09-28 09:01] VITALS: BP 154/68; O2SAT 96
[2024-09-28 09:15] LABS: FOLIC ACID 15.65 ng/ml (4.78-20)
[2024-09-28 16:03] VITALS: BP 114/62; O2SAT 99
[2024-09-29 02:37] VITALS: BP 156/82; O2SAT 96
[2024-09-29 08:37] VITALS: BP 121/74; O2SAT 97
[2024-09-29 17:44] VITALS: BP 137/69
[2024-09-30 02:07] VITALS: BP 137/66; O2SAT 98
[2024-09-30 06:39] LABS: ALT/SGPT 37.0 U/L (12-78); AST/SGOT 37.0 U/L (15-37); BILIRUBIN TOTAL 0.37 mg/dL (0.3-1.2); BUN CREA RATIO 42.0 (7.0-25.0); CREATININE SERUM 0.67 mg/dL (0.55-1.02); GFR 86.04; GLOBULINA 4.5 G/DL (2.4-3.5); GLUCOSE FASTING 101.0 mg/dL (65-100); OSMOLALITY SERUM 291.0 MOSM/KG (275-295)
[2024-09-30 09:02] VITALS: BP 157/70; O2SAT 97
[2024-09-30 17:39] VITALS: BP 147/72
[2024-10-01 02:28] VITALS: BP 166/74; O2SAT 97
[2024-10-01] MEDS ORDERED: INSULIN LISPRO 1,000 UNIT/10 ML UNITS SUBCUTANEO SCH (08:00)
[2024-10-01 08:51] VITALS: BP 157/67; O2SAT 98
[2024-10-01] MEDS ORDERED: VANCOMYCIN HCL 5 MG/ML REDILUIDO IV SCH (09:00)
[2024-10-01] MEDS ORDERED: INSULIN GLARGINE,HUM.REC.ANLOG 1,000 UNITS/10 ML UNITS SUBCUTANEO SCH (09:00)
[2024-10-01 18:50] VITALS: BP 152/65
[2024-10-02 01:56] VITALS: BP 158/74; O2SAT 98
[2024-10-02 06:31] LABS: BASO % 0.4 % (0.1-1.2); EOS # 0.62 (0.04-0.54); EOS % 7.5 % (0.7-7.0); LYMPH # 2.46 (1.18-3.74); LYMPH % 29.6 % (19.3-53.1); MEAN PLATELET VOLUME 9.80 fl (9.4-12.4); MONO # 0.75 (0.24-0.82); MONO % 9.0 % (4.7-12.5); NEUT # 4.38 (1.56-6.13); NEUT % 52.8 % (34.0-71.1); RED CELL DISTRIBUTION WIDTH 16.5 % (11.6-14.4)
[2024-10-02 18:39] VITALS: BP 142/73
[2024-10-03 01:39] VITALS: BP 154/85; O2SAT 97
[2024-10-03 07:00] VITALS: BP 158/88; O2SAT 96
[2024-10-03 08:18] LABS: ALT/SGPT 53.0 U/L (12-78); AST/SGOT 52.0 U/L (15-37); BILIRUBIN TOTAL 0.38 mg/dL (0.3-1.2); BUN CREA RATIO 43.0 (7.0-25.0); CREATININE SERUM 0.76 mg/dL (0.55-1.02); GFR 74.39; GLOBULINA 4.6 G/DL (2.4-3.5); GLUCOSE FASTING 145.0 mg/dL (65-100); OSMOLALITY SERUM 291.0 MOSM/KG (275-295)
[2024-10-03] MEDS ORDERED: FLUTICASONE PROPIONATE 50 MCG SPRAY NASAL SCH (09:00)
[2024-10-03 18:15] VITALS: BP 132/67; O2SAT 97
[2024-10-04 01:35] VITALS: BP 160/79; O2SAT 98
[2024-10-04 07:00] VITALS: BP 148/56; O2SAT 99
[2024-10-04 16:00] VITALS: BP 101/54; O2SAT 100
[2024-10-04] MEDS ORDERED: SILVER SULFADIAZINE 50 GM,NYSTATIN 30 GM,ZINC OXIDE 30 GM TOP SCH (17:00)
[2024-10-05 02:04] VITALS: BP 127/66; O2SAT 96
[2024-10-05 10:12] VITALS: BP 122/71; O2SAT 98
[2024-10-05 11:24] LABS: BASO % 0.4 % (0.1-1.2); EOS # 0.26 (0.04-0.54); EOS % 3.6 % (0.7-7.0); LYMPH # 1.85 (1.18-3.74); LYMPH % 25.8 % (19.3-53.1); MEAN PLATELET VOLUME 10.10 fl (9.4-12.4); MONO # 0.47 (0.24-0.82); MONO % 6.5 % (4.7-12.5); NEUT # 4.54 (1.56-6.13); NEUT % 63.3 % (34.0-71.1); RED CELL DISTRIBUTION WIDTH 16.4 % (11.6-14.4)
[2024-10-05 12:24] LABS: ALT/SGPT 113.0 U/L (12-78); AST/SGOT 149.0 U/L (15-37); BILIRUBIN TOTAL 0.35 mg/dL (0.3-1.2); BUN CREA RATIO 55.0 (7.0-25.0); CREATININE SERUM 0.73 mg/dL (0.55-1.02); GFR 77.93; GLOBULINA 4.8 G/DL (2.4-3.5); OSMOLALITY SERUM 299.0 MOSM/KG (275-295)
[2024-10-05 12:25] LABS: GLUCOSE FASTING 302.0 mg/dL (65-100)
[2024-10-05 18:26] VITALS: BP 134/72
[2024-10-06 01:03] VITALS: BP 148/78; O2SAT 98
[2024-10-06 07:10] LABS: URINE APPEARANCE Clear; URINE BACTERIA 10.7 uL (0.0-1933); URINE BILIRRUBIN Negative (NEGATIVE); URINE BLOOD Trace; URINE COLOR Yellow; URINE EPITHELIAL CELLS 4.2 uL (0.0-38.8); URINE GLUCOSE Negative (NEGATIVE); URINE KETONE Negative (NEGATIVE); URINE LEUKOCYTE Trace; URINE NITRATE Negative; URINE PROTEIN 30 (NEGATIVE); URINE RBC 13.3 uL (0.0-20.8); URINE UROBILINOGEN 1.0 E.U./dl; URINE WBC 6.7 uL (0.0-23.2)
[2024-10-06 07:11] LABS: URINE CAST 0.00 uL (0.0-1.40)
[2024-10-06] MEDS ORDERED: VANCOMYCIN HCL 1,000 MG VIAL IV SCH (09:00)
[2024-10-06 09:09] VITALS: BP 164/84; O2SAT 95
[2024-10-06] MEDS ORDERED: DEXTROSE 50 % IN WATER 0.5 G/ML VIAL IV PRN (14:00)
[2024-10-06 18:45] VITALS: BP 104/62; O2SAT 97
[2024-10-07 01:05] VITALS: BP 134/78; O2SAT 98
[2024-10-07] MEDS ORDERED: INSULIN GLARGINE,HUM.REC.ANLOG 1,000 UNITS/10 ML UNITS SUBCUTANEO SCH (09:00)
[2024-10-07 10:20] VITALS: BP 135/71; O2SAT 96
[2024-10-07 18:54] VITALS: BP 157/70; O2SAT 96
[2024-10-08 01:00] VITALS: BP 104/64
[2024-10-08] MEDS ORDERED: INSULIN GLARGINE,HUM.REC.ANLOG 1,000 UNITS/10 ML UNITS SUBCUTANEO SCH (09:00)
[2024-10-08 09:32] VITALS: BP 160/80; O2SAT 97
[2024-10-08 18:24] VITALS: BP 135/70; O2SAT 100
[2024-10-09 01:33] VITALS: BP 156/80
[2024-10-09 05:42] LABS: BASO % 0.9 % (0.1-1.2); EOS # 0.39 (0.04-0.54); EOS % 7.0 % (0.7-7.0); LYMPH # 1.70 (1.18-3.74); LYMPH % 30.6 % (19.3-53.1); MEAN PLATELET VOLUME 10.10 fl (9.4-12.4); MONO # 0.42 (0.24-0.82); MONO % 7.6 % (4.7-12.5); NEUT # 2.99 (1.56-6.13); NEUT % 53.7 % (34.0-71.1); RED CELL DISTRIBUTION WIDTH 16.6 % (11.6-14.4)
[2024-10-09 06:27] LABS: BUN CREA RATIO 66.0 (7.0-25.0); CREATININE SERUM 0.68 mg/dL (0.55-1.02); GFR 84.58; GLUCOSE FASTING 154.0 mg/dL (65-100); OSMOLALITY SERUM 298.0 MOSM/KG (275-295)
[2024-10-09 08:00] VITALS: BP 158/84; O2SAT 99
[2024-10-09] MEDS ORDERED: INSULIN LISPRO 1,000 UNIT/10 ML UNITS SUBCUTANEO SCH (08:00)
[2024-10-09 16:50] VITALS: BP 100/58; O2SAT 95
[2024-10-10 03:30] VITALS: BP 138/75; O2SAT 96
[2024-10-10 10:20] VITALS: BP 110/76; O2SAT 96
[2024-10-10 19:04] VITALS: BP 133/66
[2024-10-11 02:55] VITALS: BP 139/68; O2SAT 99
[2024-10-11 09:02] VITALS: BP 138/78
[2024-10-11] MEDS ORDERED: PREGABALIN75 MG PO (14:11)
== END 2024-10-11 17:20 | disposition home or self-care (01) | DRG 982 ==
LOC: ER 13:04 → MEDI 21:33 → MEDJ 09-26 12:43
PROVIDERS: Emergency Medicine; Internal Medicine; Internal Medicine Hematology & Oncology; Internal Medicine Infectious Disease; ADMIT Specialist; ATTEND Specialist
PROC: B44HZZZ Ultrasonography of Bilateral Lower Extremity Arteries (ICD-10-PCS; 2024-09-23)
PROC: B24BZZZ Ultrasonography of Heart with Aorta (ICD-10-PCS; 2024-09-23)
PROC: B54DZZZ Ultrasonography of Bilateral Lower Extremity Veins (ICD-10-PCS; 2024-09-23)
PROC: BQ3FZZZ Magnetic Resonance Imaging (MRI) of Left Lower Leg (ICD-10-PCS; 2024-09-24)
PROC: 30233N1 Transfusion of Nonautologous Red Blood Cells into Peripheral Vein, Percutaneous Approach (ICD-10-PCS; 2024-09-25)
PROC: 8E0ZXY6 Isolation (ICD-10-PCS; 2024-09-26)
PROC: 02HV33Z Insertion of Infusion Device into Superior Vena Cava, Percutaneous Approach (ICD-10-PCS; 2024-09-26)
PROC: 0JDQ0ZZ Extraction of Right Foot Subcutaneous Tissue and Fascia, Open Approach (ICD-10-PCS; principal; 2024-09-29)
PROC: 0JDR0ZZ Extraction of Left Foot Subcutaneous Tissue and Fascia, Open Approach (ICD-10-PCS; 2024-09-29)
PROC: 0JDR0ZZ Extraction of Left Foot Subcutaneous Tissue and Fascia, Open Approach (ICD-10-PCS; 2024-10-06)
PROC: 0JDQ0ZZ Extraction of Right Foot Subcutaneous Tissue and Fascia, Open Approach (ICD-10-PCS; 2024-10-06)
PROC: 0HBRXZZ Excision of Toe Nail, External Approach (ICD-10-PCS; 2024-10-06)
DX: E11.621 Type 2 diabetes mellitus with foot ulcer (principal); D62 Acute posthemorrhagic anemia; L97.423 Non-pressure chronic ulcer of left heel and midfoot with necrosis of muscle; L97.413 Non-pressure chronic ulcer of right heel and midfoot with necrosis of muscle; E11.51 Type 2 diabetes mellitus with diabetic peripheral angiopathy without gangrene; L97.519 Non-pressure chronic ulcer of other part of right foot with unspecified severity; Z79.4 Long term (current) use of insulin; E03.9 Hypothyroidism, unspecified; I11.0 Hypertensive heart disease with heart failure; I50.9 Heart failure, unspecified; E11.65 Type 2 diabetes mellitus with hyperglycemia; D63.8 Anemia in other chronic diseases classified elsewhere; I25.10 Atherosclerotic heart disease of native coronary artery without angina pectoris; I27.20 Pulmonary hypertension, unspecified; M19.90 Unspecified osteoarthritis, unspecified site; B35.1 Tinea unguium; L08.9 Local infection of the skin and subcutaneous tissue, unspecified; B95.61 Methicillin susceptible Staphylococcus aureus infection as the cause of diseases classified elsewhere; I73.9 Peripheral vascular disease, unspecified

== ENCOUNTER 2024-11-17 20:01 | Inpatient (IN) | payer OTHER ==
[~2024-11-17] VITALS: Ht 152.4 cm; Wt 59.0 kg
[~2024-11-17 20:01] MED LIST changes: +PREGABALIN75 MG PO
[2024-11-17] MEDS ORDERED: 0.9 % SODIUM CHLORIDE 1,000 ML IV STA (23:35)
[2024-11-17] MEDS ORDERED: PIPERACILLIN/TAZOBACTAM SODIUM 3.375 GM VIAL IV STA (23:36)
[2024-11-18 00:35] LABS: BASO % 0.2 % (0.1-1.2); EOS # 0.16 (0.04-0.54); EOS % 1.4 % (0.7-7.0); LYMPH # 1.39 (1.18-3.74); LYMPH % 11.9 % (19.3-53.1); MEAN PLATELET VOLUME 9.80 fl (9.4-12.4); MONO # 0.85 (0.24-0.82); MONO % 7.3 % (4.7-12.5); NEUT # 9.19 (1.56-6.13); NEUT % 78.5 % (34.0-71.1); RED CELL DISTRIBUTION WIDTH 16.0 % (11.6-14.4)
[2024-11-18 00:40] LABS: ERYTHROCYTE SEDIMENTATION RATE > 130 mm/hr (0-30)
[2024-11-18 00:54] LABS: INR 1.34
[2024-11-18 00:58] LABS: ALT/SGPT 49.0 U/L (12-78); AST/SGOT 35.0 U/L (15-37); BILIRUBIN TOTAL 0.4 mg/dL (0.3-1.2); BUN CREA RATIO 43.0 (7.0-25.0); CREATININE SERUM 0.72 mg/dL (0.55-1.02); GFR 79.18; GLOBULINA 4.8 G/DL (2.4-3.5); OSMOLALITY SERUM 291.0 MOSM/KG (275-295)
[2024-11-18 00:59] LABS: GLUCOSE FASTING 248.0 mg/dL (65-100)
[2024-11-18 01:19] LABS: COVID-19 AG NEGATIVE (NEGATIVE)
[2024-11-18] MEDS ORDERED: KETOROLAC TROMETHAMINE 30 MG VIAL IV STA (02:29)
[2024-11-18] MEDS ORDERED: PIPERACILLIN/TAZOBACTAM SODIUM 3.375 GM in 0.9 % SODIUM CHLORIDE 100 ML IV SCH (06:00)
[2024-11-18] MEDS ORDERED: SODIUM CHLORIDE 0.45 % 1,000 ML IV SCH (08:00)
[2024-11-18] MEDS ORDERED: INSULIN LISPRO 1,000 UNIT/10 ML UNITS SUBCUTANEO PRN (08:15)
[2024-11-18] MEDS ORDERED: DEXTROSE 50 % IN WATER 0.5 G/ML DISP.SYRIN IV PRN (08:15)
[2024-11-18] MEDS ORDERED: ATORVASTATIN CALCIUM 10 MG TABLET PO SCH (09:00)
[2024-11-18] MEDS ORDERED: VANCOMYCIN HCL 1,000 MG VIAL IV SCH ×2 (09:00→21:00)
[2024-11-18] MEDS ORDERED: CANDESARTAN CILEXETIL 16 MG TABLET PO SCH (09:00)
[2024-11-18 11:29] LABS: CKMB 1.9 NG/ML (0.5-3.6); LDH 245.0 U/L (84-246); PHOSPHOKINASE CREATININE 89.0 U/L (26-192)
[2024-11-18 13:16] VITALS: BP 127/66; O2SAT 99
[2024-11-18 18:12] VITALS: BP 158/82
[2024-11-18] MEDS ORDERED: INSULIN GLARGINE,HUM.REC.ANLOG 1,000 UNITS/10 ML UNITS SUBCUTANEO SCH (21:00)
[2024-11-19 02:00] VITALS: BP 111/68; O2SAT 99
[2024-11-19 06:12] LABS: BASO % 0.3 % (0.1-1.2); EOS # 0.33 (0.04-0.54); EOS % 4.6 % (0.7-7.0); LYMPH # 1.14 (1.18-3.74); LYMPH % 16.0 % (19.3-53.1); MEAN PLATELET VOLUME 9.90 fl (9.4-12.4); MONO # 0.34 (0.24-0.82); MONO % 4.8 % (4.7-12.5); NEUT # 5.23 (1.56-6.13); NEUT % 73.6 % (34.0-71.1); RED CELL DISTRIBUTION WIDTH 16.2 % (11.6-14.4)
[2024-11-19 06:30] LABS: INR 1.25
[2024-11-19 06:52] LABS: ERYTHROCYTE SEDIMENTATION RATE 124 mm/hr (0-30)
[2024-11-19 07:24] LABS: ALT/SGPT 38 U/L (12-78); AST/SGOT 26 U/L (15-37); BILIRUBIN TOTAL 0.24 mg/dL (0.3-1.2); BILIRUBIN,CONJUGATED < 0.10 mg/dL (0.0-0.2); BUN CREA RATIO 41 (7.0-25.0); CHOL HDL RATIO 3.8 (0-5.0); CREATININE SERUM 0.79 mg/dL (0.55-1.02); GFR 71.14; HDL 26 mg/dl (40-60); LDL 61 mg/dl (0-130); T4 FREE 0.83 NG/ML (0.76-1.46); VLDL 12 (0-39)
[2024-11-19 07:31] LABS: OSMOLALITY SERUM 299 MOSM/KG (275-295)
[2024-11-19 07:32] LABS: GLUCOSE FASTING 256 mg/dL (65-100); TSH 5.240 uIU/mL (0.358-3.74)
[2024-11-19] MEDS ORDERED: LEVOTHYROXINE SODIUM 50 MCG TABLET PO SCH (08:15)
[2024-11-19] MEDS ORDERED: VANCOMYCIN HCL 5 MG/ML REDILUIDO IV SCH ×2 (09:00→21:00)
[2024-11-19] MEDS ORDERED: VANCOMYCIN HCL 1,000 MG VIAL IV NR (09:00)
[2024-11-19 09:02] VITALS: BP 130/73; O2SAT 98
[2024-11-19 11:49] LABS: URINE APPEARANCE Turbid; URINE BILIRRUBIN Negative (NEGATIVE); URINE BLOOD Trace; URINE COLOR Yellow; URINE KETONE Negative (NEGATIVE); URINE LEUKOCYTE Trace; URINE NITRATE Negative; URINE PROTEIN 30 (NEGATIVE); URINE UROBILINOGEN 1.0 E.U./dl
[2024-11-19 11:50] LABS: URINE CAST 2.19 uL (0.0-1.40); URINE EPITHELIAL CELLS 102.9 uL (0.0-38.8); URINE RBC 320.3 uL (0.0-20.8); URINE WBC 33.2 uL (0.0-23.2)
[2024-11-19 12:00] LABS: URINE BACTERIA > 9821.5 uL (0.0-1933); URINE GLUCOSE 500 MG/DL (NEGATIVE)
[2024-11-19 12:01] LABS: URINE CRYSTALS MODERATE /HPF
[2024-11-19 12:06] LABS: ob NEGATIVE (NEGATIVE)
[2024-11-19] MEDS ORDERED: SOD FERRIC GLUC COMPLX/SUCROSE 62.5 MG in 0.9 % SODIUM CHLORIDE 50 ML IV SCH (17:00)
[2024-11-19] MEDS ORDERED: INSULIN LISPRO 1,000 UNIT/10 ML UNITS SUBCUTANEO SCH (17:00)
[2024-11-19] MEDS ORDERED: INSULIN GLARGINE,HUM.REC.ANLOG 1,000 UNITS/10 ML UNITS SUBCUTANEO SCH (21:00)
[2024-11-19 21:51] VITALS: BP 146/76; O2SAT 100
[2024-11-20 02:54] VITALS: BP 178/80; O2SAT 97
[2024-11-20 09:48] VITALS: BP 103/66; O2SAT 97
[2024-11-20 19:40] VITALS: BP 160/77; O2SAT 100
[2024-11-20] MEDS ORDERED: VANCOMYCIN HCL 5 MG/ML REDILUIDO IV SCH (21:00)
[2024-11-21 03:03] VITALS: BP 164/82; O2SAT 97
[2024-11-21 07:58] LABS: BASO % 0.5 % (0.1-1.2); EOS # 0.29 (0.04-0.54); EOS % 3.5 % (0.7-7.0); LYMPH # 1.82 (1.18-3.74); LYMPH % 21.9 % (19.3-53.1); MEAN PLATELET VOLUME 9.50 fl (9.4-12.4); MONO # 0.44 (0.24-0.82); MONO % 5.3 % (4.7-12.5); NEUT # 5.62 (1.56-6.13); NEUT % 67.6 % (34.0-71.1); RED CELL DISTRIBUTION WIDTH 16.8 % (11.6-14.4)
[2024-11-21] MEDS ORDERED: INSULIN LISPRO 1,000 UNIT/10 ML UNITS SUBCUTANEO SCH (08:00)
[2024-11-21 08:16] LABS: ALT/SGPT 31.0 U/L (12-78); AST/SGOT 22.0 U/L (15-37); BILIRUBIN TOTAL 0.22 mg/dL (0.3-1.2); BUN CREA RATIO 27.0 (7.0-25.0); CREATININE SERUM 0.59 mg/dL (0.55-1.02); GFR 99.64; GLOBULINA 4.0 G/DL (2.4-3.5); GLUCOSE FASTING 105.0 mg/dL (65-100); OSMOLALITY SERUM 290.0 MOSM/KG (275-295)
[2024-11-21] MEDS ORDERED: VANCOMYCIN HCL 1,000 MG VIAL IV SCH (09:00)
[2024-11-21 10:33] VITALS: BP 148/80; O2SAT 98
[2024-11-21] MEDS ORDERED: ENOXAPARIN SODIUM 40 MG/0.4 ML SYRINGE SUBCUTANEO SCH (17:00)
[2024-11-21 17:26] VITALS: BP 162/79; O2SAT 100
[2024-11-21] MEDS ORDERED: INSULIN GLARGINE,HUM.REC.ANLOG 1,000 UNITS/10 ML UNITS SUBCUTANEO SCH (21:00)
[2024-11-22 02:32] VITALS: BP 137/71; O2SAT 95
[2024-11-22 07:50] LABS: BASO % 0.5 % (0.1-1.2); EOS # 0.22 (0.04-0.54); EOS % 2.7 % (0.7-7.0); LYMPH # 1.83 (1.18-3.74); LYMPH % 22.4 % (19.3-53.1); MEAN PLATELET VOLUME 9.60 fl (9.4-12.4); MONO # 0.49 (0.24-0.82); MONO % 6.0 % (4.7-12.5); NEUT # 5.46 (1.56-6.13); NEUT % 66.8 % (34.0-71.1); RED CELL DISTRIBUTION WIDTH 17.1 % (11.6-14.4)
[2024-11-22 09:32] LABS: ALT/SGPT 29.0 U/L (12-78); AST/SGOT 23.0 U/L (15-37); BILIRUBIN TOTAL 0.2 mg/dL (0.3-1.2); BUN CREA RATIO 30.0 (7.0-25.0); CREATININE SERUM 0.57 mg/dL (0.55-1.02); GFR 103.68; GLOBULINA 3.8 G/DL (2.4-3.5); GLUCOSE FASTING 88.0 mg/dL (65-100); OSMOLALITY SERUM 288.0 MOSM/KG (275-295)
[2024-11-22 10:05] VITALS: BP 145/74; O2SAT 97
[2024-11-22 18:38] VITALS: BP 168/79; O2SAT 96
[2024-11-23 03:07] VITALS: BP 147/82; O2SAT 95
[2024-11-23 09:11] VITALS: BP 136/68; O2SAT 97
[2024-11-23] MEDS ORDERED: CIPROFLOXACIN IN 5 % DEXTROSE 400 MG/200 ML PIGGYBAG IV SCH (17:00)
[2024-11-23 18:18] VITALS: BP 150/77; O2SAT 98
[2024-11-24 01:16] VITALS: BP 155/83; O2SAT 94
[2024-11-24 05:18] LABS: BASO % 0.2 % (0.1-1.2); EOS # 0.26 (0.04-0.54); EOS % 2.7 % (0.7-7.0); LYMPH # 2.09 (1.18-3.74); LYMPH % 22.1 % (19.3-53.1); MEAN PLATELET VOLUME 9.60 fl (9.4-12.4); MONO # 0.59 (0.24-0.82); MONO % 6.2 % (4.7-12.5); NEUT # 6.34 (1.56-6.13); NEUT % 67.0 % (34.0-71.1); RED CELL DISTRIBUTION WIDTH 16.8 % (11.6-14.4)
[2024-11-24 05:35] LABS: ERYTHROCYTE SEDIMENTATION RATE 93 mm/hr (0-30)
[2024-11-24 08:06] LABS: BUN CREA RATIO 29.0 (7.0-25.0); CREATININE SERUM 0.72 mg/dL (0.55-1.02); GFR 79.18; GLUCOSE FASTING 177.0 mg/dL (65-100); OSMOLALITY SERUM 289.0 MOSM/KG (275-295)
[2024-11-24 08:07] LABS: ALT/SGPT 24.0 U/L (12-78); AST/SGOT 21.0 U/L (15-37); BILIRUBIN TOTAL 0.19 mg/dL (0.3-1.2); GLOBULINA 4.0 G/DL (2.4-3.5)
[2024-11-24 08:44] VITALS: BP 140/65; O2SAT 100
[2024-11-24 14:26] LABS: FOLIC ACID 15.44 ng/ml (4.78-20)
[2024-11-24 18:23] VITALS: BP 151/71
[2024-11-24] MEDS ORDERED: VANCOMYCIN HCL 5 MG/ML REDILUIDO IV SCH (21:00)
[2024-11-25 01:10] VITALS: BP 150/76; O2SAT 98
[2024-11-25] MEDS ORDERED: INSULIN LISPRO 1,000 UNIT/10 ML UNITS SUBCUTANEO SCH (08:00)
[2024-11-25 08:21] VITALS: BP 124/71; O2SAT 95
[2024-11-25] MEDS ORDERED: PANTOPRAZOLE SODIUM 40 MG/VIAL VIAL IV STA (13:51)
[2024-11-25] MEDS ORDERED: ONDANSETRON HCL 4 MG in 0.9 % SODIUM CHLORIDE 50 ML IV PRN (14:00)
[2024-11-25] MEDS ORDERED: FAMOTIDINE/PF 20 MG/2 ML VIAL IV SCH (17:00)
[2024-11-25 18:57] VITALS: BP 160/81
[2024-11-26 00:58] VITALS: BP 137/90
[2024-11-26] MEDS ORDERED: PANTOPRAZOLE SODIUM 40 MG TABLET.DR PO SCH (09:00)
[2024-11-26 09:06] VITALS: BP 149/67; O2SAT 98
[2024-11-26 17:50] VITALS: BP 162/77; O2SAT 99
[2024-11-27 01:23] VITALS: BP 150/70; O2SAT 97
[2024-11-27 03:44] LABS: ob NEGATIVE (NEGATIVE)
[2024-11-27] MEDS ORDERED: LEVOTHYROXINE SODIUM 75 MCG TABLET PO SCH (06:00)
[2024-11-27 06:25] LABS: BASO % 0.3 % (0.1-1.2); EOS # 0.24 (0.04-0.54); EOS % 3.2 % (0.7-7.0); LYMPH # 1.98 (1.18-3.74); LYMPH % 26.3 % (19.3-53.1); MEAN PLATELET VOLUME 9.90 fl (9.4-12.4); MONO # 0.52 (0.24-0.82); MONO % 6.9 % (4.7-12.5); NEUT # 4.70 (1.56-6.13); NEUT % 62.5 % (34.0-71.1); RED CELL DISTRIBUTION WIDTH 17.2 % (11.6-14.4)
[2024-11-27 07:02] LABS: ALT/SGPT 21.0 U/L (12-78); AST/SGOT 31.0 U/L (15-37); BILIRUBIN TOTAL 0.22 mg/dL (0.3-1.2); BUN CREA RATIO 25.0 (7.0-25.0); CREATININE SERUM 0.65 mg/dL (0.55-1.02); GFR 89.1; GLOBULINA 4.1 G/DL (2.4-3.5); GLUCOSE FASTING 83.0 mg/dL (65-100); OSMOLALITY SERUM 283.0 MOSM/KG (275-295)
[2024-11-27] MEDS ORDERED: METOCLOPRAMIDE HCL 5 MG TABLET PO SCH ×2 (09:00)
[2024-11-27] MEDS ORDERED: SIMETHICONE 125 MG CAPSULE PO SCH (09:00)
[2024-11-27 09:37] VITALS: BP 159/76; O2SAT 97
[2024-11-27 11:58] LABS: CKMB 1.9 NG/ML (0.5-3.6); LDH 211.0 U/L (84-246)
[2024-11-27] MEDS ORDERED: AMINO ACIDS/PROTEIN HYDROLYS 30 ML BLIST.PACK PO SCH (17:00)
[2024-11-27 17:57] VITALS: BP 146/77; O2SAT 98
[2024-11-28 00:24] LABS: LDH 243.0 U/L (84-246)
[2024-11-28 00:44] LABS: CKMB 2.1 NG/ML (0.5-3.6)
[2024-11-28 02:15] VITALS: BP 132/71
[2024-11-28 07:34] LABS: ALT/SGPT 19 U/L (12-78); AST/SGOT 25 U/L (15-37); BILIRUBIN TOTAL 0.16 mg/dL (0.3-1.2); BILIRUBIN,CONJUGATED < 0.10 mg/dL (0.0-0.2)
[2024-11-28 07:55] LABS: CKMB 1.6 NG/ML (0.5-3.6); LDH 175.0 U/L (84-246)
[2024-11-28 09:28] VITALS: BP 149/74
[2024-11-28] MEDS ORDERED: INSULIN GLARGINE,HUM.REC.ANLOG 1,000 UNITS/10 ML UNITS SUBCUTANEO SCH (21:00)
[2024-11-29 02:14] VITALS: BP 146/80; O2SAT 97
[2024-11-29 08:53] VITALS: BP 146/70; O2SAT 98
[2024-11-29 17:00] VITALS: BP 158/84; O2SAT 100
[2024-11-29] MEDS ORDERED: SUCRALFATE 1 G TABLET PO SCH (17:00)
[2024-11-30 02:24] VITALS: BP 160/85; O2SAT 98
[2024-11-30 06:17] LABS: BASO % 0.4 % (0.1-1.2); EOS # 0.15 (0.04-0.54); EOS % 1.8 % (0.7-7.0); LYMPH # 1.52 (1.18-3.74); LYMPH % 18.7 % (19.3-53.1); MEAN PLATELET VOLUME 10.10 fl (9.4-12.4); MONO # 0.57 (0.24-0.82); MONO % 7.0 % (4.7-12.5); NEUT # 5.84 (1.56-6.13); NEUT % 71.9 % (34.0-71.1); RED CELL DISTRIBUTION WIDTH 17.5 % (11.6-14.4)
[2024-11-30 06:58] LABS: ALT/SGPT 22.0 U/L (12-78); AST/SGOT 31.0 U/L (15-37); BILIRUBIN TOTAL 0.22 mg/dL (0.3-1.2); BUN CREA RATIO 29.0 (7.0-25.0); CREATININE SERUM 0.87 mg/dL (0.55-1.02); GFR 63.65; GLOBULINA 4.2 G/DL (2.4-3.5); OSMOLALITY SERUM 289.0 MOSM/KG (275-295)
[2024-11-30 07:01] LABS: GLUCOSE FASTING 200.0 mg/dL (65-100)
[2024-11-30] MEDS ORDERED: MAGNESIUM SULFATE IN WATER 50 ML IV NR (08:35)
[2024-11-30] MEDS ORDERED: POTASSIUM PHOS,M-BASIC-D-BASIC 9 MM in 0.9 % SODIUM CHLORIDE 250 ML IV NR (10:00)
[2024-11-30 10:02] VITALS: BP 152/81; O2SAT 97
[2024-11-30 16:38] VITALS: BP 154/73
[2024-12-01 02:25] VITALS: BP 106/68; O2SAT 97
[2024-12-01] MEDS ORDERED: METOCLOPRAMIDE HCL 10 MG TABLET PO SCH (09:00)
[2024-12-01 09:13] VITALS: BP 138/81; O2SAT 96
[2024-12-01 18:07] VITALS: BP 145/71; O2SAT 97
[2024-12-02 01:00] VITALS: BP 145/73; O2SAT 98
[2024-12-02 08:55] VITALS: BP 157/80; O2SAT 97
[2024-12-02 18:05] VITALS: BP 160/82; O2SAT 96
[2024-12-03 02:11] VITALS: BP 155/83; O2SAT 97
[2024-12-03 06:46] LABS: BASO % 0.5 % (0.1-1.2); EOS # 0.25 (0.04-0.54); EOS % 4.4 % (0.7-7.0); LYMPH # 0.94 (1.18-3.74); LYMPH % 16.5 % (19.3-53.1); MEAN PLATELET VOLUME 9.80 fl (9.4-12.4); MONO # 0.49 (0.24-0.82); MONO % 8.6 % (4.7-12.5); NEUT # 3.96 (1.56-6.13); NEUT % 69.5 % (34.0-71.1); RED CELL DISTRIBUTION WIDTH 18.0 % (11.6-14.4)
[2024-12-03 07:05] LABS: ALT/SGPT 22.0 U/L (12-78); AST/SGOT 29.0 U/L (15-37); BILIRUBIN TOTAL 0.27 mg/dL (0.3-1.2); BUN CREA RATIO 40.0 (7.0-25.0); CREATININE SERUM 0.82 mg/dL (0.55-1.02); GFR 68.15; GLOBULINA 4.1 G/DL (2.4-3.5); GLUCOSE FASTING 163.0 mg/dL (65-100); OSMOLALITY SERUM 294.0 MOSM/KG (275-295)
[2024-12-03] MEDS ORDERED: NYSTATIN 30 GM,SILVER SULFADIAZINE 50 GM,ZINC OXIDE 30 GM TOP SCH (09:00)
[2024-12-03 09:41] VITALS: BP 157/89; O2SAT 97
[2024-12-03] MEDS ORDERED: VANCOMYCIN HCL 5 MG/ML REDILUIDO IV SCH (10:00)
[2024-12-03] MEDS ORDERED: PANTOPRAZOLE SODIUM 40 MG TABLET.DR PO SCH (17:00)
[2024-12-03 18:13] VITALS: BP 159/84; O2SAT 97
[2024-12-04 01:00] VITALS: BP 126/58; O2SAT 98
[2024-12-04 08:00] VITALS: BP 128/73; O2SAT 95
[2024-12-04 18:17] VITALS: BP 150/85; O2SAT 100
[2024-12-05 00:55] VITALS: BP 145/77; O2SAT 98
[2024-12-05 08:17] VITALS: BP 147/65; O2SAT 96
[2024-12-05] MEDS ORDERED: INSULIN GLARGINE,HUM.REC.ANLOG 1,000 UNITS/10 ML UNITS SUBCUTANEO SCH (09:00)
[2024-12-05] MEDS ORDERED: FLUTICASONE PROPIONATE 50 MCG SPRAY NASAL SCH (09:46)
[2024-12-05 18:30] VITALS: BP 150/76; O2SAT 96
[2024-12-06 00:59] VITALS: BP 160/80; O2SAT 98
[2024-12-06 11:13] VITALS: BP 130/74; O2SAT 98
[2024-12-06 16:54] VITALS: BP 155/76; O2SAT 100
[2024-12-07 00:42] VITALS: BP 146/76; O2SAT 99
[2024-12-07 08:19] VITALS: BP 144/79
[2024-12-07] MEDS ORDERED: INSULIN LISPRO 1,000 UNIT/10 ML UNITS SUBCUTANEO SCH (08:48)
[2024-12-07] MEDS ORDERED: INSULIN GLARGINE,HUM.REC.ANLOG 1,000 UNITS/10 ML UNITS SUBCUTANEO SCH (09:00)
[2024-12-07 16:45] VITALS: BP 138/84
[2024-12-07] MEDS ORDERED: VANCOMYCIN HCL 500 MG VIAL IV SCH (21:00)
[2024-12-08 00:59] VITALS: BP 146/71; O2SAT 97
[2024-12-08 05:24] LABS: BASO % 0.6 % (0.1-1.2); EOS # 0.35 (0.04-0.54); EOS % 7.3 % (0.7-7.0); LYMPH # 1.64 (1.18-3.74); LYMPH % 34.2 % (19.3-53.1); MEAN PLATELET VOLUME 9.70 fl (9.4-12.4); MONO # 0.43 (0.24-0.82); MONO % 9.0 % (4.7-12.5); NEUT # 2.33 (1.56-6.13); NEUT % 48.7 % (34.0-71.1)
[2024-12-08 05:27] LABS: ERYTHROCYTE SEDIMENTATION RATE 80 mm/hr (0-30); RED CELL DISTRIBUTION WIDTH 17.5 % (11.6-14.4)
[2024-12-08 05:47] LABS: ALT/SGPT 24.0 U/L (12-78); AST/SGOT 28.0 U/L (15-37); BILIRUBIN TOTAL 0.23 mg/dL (0.3-1.2); BUN CREA RATIO 40.0 (7.0-25.0); CREATININE SERUM 0.85 mg/dL (0.55-1.02); GFR 65.38; GLOBULINA 3.9 G/DL (2.4-3.5)
[2024-12-08 05:51] LABS: GLUCOSE FASTING 213.0 mg/dL (65-100); OSMOLALITY SERUM 295.0 MOSM/KG (275-295)
[2024-12-08 08:19] VITALS: BP 155/77; O2SAT 97
[2024-12-08] MEDS ORDERED: IRON FUM,PS/FOLIC/BCOMP,C NO.9 1 CAP CAPSULE PO SCH (09:00)
[2024-12-08] MEDS ORDERED: MAGNESIUM SULFATE IN WATER 50 ML IV NR (10:00)
[2024-12-08] MEDS ORDERED: SIMETHICONE 125 MG CAPSULE PO SCH (12:00)
[2024-12-08 17:55] VITALS: BP 162/80
[2024-12-09 00:31] VITALS: BP 154/80; O2SAT 96
[2024-12-09 08:41] VITALS: BP 144/74; O2SAT 99
[2024-12-09 17:38] VITALS: BP 160/85; O2SAT 98
[2024-12-10 02:14] VITALS: BP 158/76; O2SAT 97
[2024-12-10 08:17] VITALS: BP 160/80; O2SAT 97
[2024-12-10 17:11] VITALS: BP 160/80; O2SAT 98
[2024-12-11 01:20] VITALS: BP 116/63; O2SAT 95
[2024-12-11 08:14] VITALS: BP 149/72; O2SAT 97
[2024-12-11 13:19] LABS: ALT/SGPT 28.0 U/L (12-78); AST/SGOT 34.0 U/L (15-37); BILIRUBIN TOTAL 0.41 mg/dL (0.3-1.2); BUN CREA RATIO 46.0 (7.0-25.0); CREATININE SERUM 0.79 mg/dL (0.55-1.02); GFR 71.14; GLOBULINA 4.9 G/DL (2.4-3.5); GLUCOSE FASTING 173.0 mg/dL (65-100); OSMOLALITY SERUM 294.0 MOSM/KG (275-295)
[2024-12-11 14:51] LABS: BASO % 0.7 % (0.1-1.2); EOS # 0.31 (0.04-0.54); EOS % 5.4 % (0.7-7.0); LYMPH # 1.44 (1.18-3.74); LYMPH % 25.0 % (19.3-53.1); MEAN PLATELET VOLUME 9.60 fl (9.4-12.4); MONO # 0.36 (0.24-0.82); MONO % 6.3 % (4.7-12.5); NEUT # 3.57 (1.56-6.13); NEUT % 61.9 % (34.0-71.1); RED CELL DISTRIBUTION WIDTH 18.3 % (11.6-14.4)
[2024-12-11 17:34] VITALS: BP 160/85; O2SAT 96
[2024-12-12 02:08] VITALS: BP 139/73; O2SAT 97
[2024-12-12] MEDS ORDERED: INSULIN LISPRO 1,000 UNIT/10 ML UNITS SUBCUTANEO SCH (08:00)
[2024-12-12 08:25] VITALS: BP 132/66
[2024-12-12 15:04] LABS: URINE BILIRRUBIN NEGATIVE (NEGATIVE); URINE BLOOD SMALL; URINE GLUCOSE NEGATIVE (NEGATIVE); URINE KETONE NEGATIVE (NEGATIVE); URINE LEUKOCYTE SMALL; URINE NITRATE NEGATIVE; URINE PROTEIN TRACE (NEGATIVE); URINE UROBILINOGEN 0.2 E.U./dl
[2024-12-12 15:05] LABS: URINE APPEARANCE SL CLOUDY; URINE COLOR YELLOW
[2024-12-12 15:29] LABS: URINE BACTERIA FEW; URINE CRYSTALS NEGATIVE /HPF; URINE RBC 0-3 /HPF; URINE WBC LOADED /hpf
[2024-12-12 15:30] LABS: URINE YEAST FEW /hpf
[2024-12-12 17:32] VITALS: BP 131/85
[2024-12-13 02:38] VITALS: BP 146/77; O2SAT 98
[2024-12-13 08:58] VITALS: BP 133/60
[2024-12-13 18:10] VITALS: BP 158/76
[2024-12-14 02:55] VITALS: BP 133/68; O2SAT 95
[2024-12-14 06:30] LABS: BASO % 0.6 % (0.1-1.2); EOS # 0.32 (0.04-0.54); EOS % 6.4 % (0.7-7.0); LYMPH # 1.61 (1.18-3.74); LYMPH % 32.1 % (19.3-53.1); MEAN PLATELET VOLUME 9.90 fl (9.4-12.4); MONO # 0.55 (0.24-0.82); MONO % 11.0 % (4.7-12.5); NEUT # 2.48 (1.56-6.13); NEUT % 49.3 % (34.0-71.1); RED CELL DISTRIBUTION WIDTH 17.9 % (11.6-14.4)
[2024-12-14 07:07] LABS: ALT/SGPT 25.0 U/L (12-78); AST/SGOT 23.0 U/L (15-37); BILIRUBIN TOTAL 0.33 mg/dL (0.3-1.2); BUN CREA RATIO 45.0 (7.0-25.0); CREATININE SERUM 0.86 mg/dL (0.55-1.02); GFR 64.5; GLOBULINA 3.9 G/DL (2.4-3.5); GLUCOSE FASTING 168.0 mg/dL (65-100); OSMOLALITY SERUM 298.0 MOSM/KG (275-295)
[2024-12-14 08:29] VITALS: BP 126/71
[2024-12-14 16:00] VITALS: BP 178/84; O2SAT 99
[2024-12-14] MEDS ORDERED: LACTOBACILLUS ACIDOPHILUS 1 CAP CAP PO SCH (17:00)
[2024-12-14] MEDS ORDERED: CIPROFLOXACIN IN 5 % DEXTROSE 400 MG/200 ML PIGGYBAG IV SCH (17:00)
[2024-12-14] MEDS ORDERED: MEROPENEM 500 MG/VIAL VIAL IV SCH (18:00)
[2024-12-15 01:40] VITALS: BP 160/80; O2SAT 96
[2024-12-15 08:48] VITALS: BP 144/77; O2SAT 96
[2024-12-15 18:57] VITALS: BP 152/72; O2SAT 100
[2024-12-16 00:54] VITALS: BP 150/66; O2SAT 98
[2024-12-16 07:58] VITALS: BP 124/74
[2024-12-16 16:53] VITALS: BP 153/79
[2024-12-16] MEDS ORDERED: VANCOMYCIN HCL 5 MG/ML REDILUIDO IV SCH (21:00)
[2024-12-17 02:07] VITALS: BP 160/84; O2SAT 96
[2024-12-17 06:21] LABS: BASO % 0.3 % (0.1-1.2); EOS # 0.20 (0.04-0.54); EOS % 2.6 % (0.7-7.0); LYMPH # 1.30 (1.18-3.74); LYMPH % 17.1 % (19.3-53.1); MEAN PLATELET VOLUME 10.00 fl (9.4-12.4); MONO # 0.65 (0.24-0.82); MONO % 8.5 % (4.7-12.5); NEUT # 5.42 (1.56-6.13); NEUT % 71.1 % (34.0-71.1); RED CELL DISTRIBUTION WIDTH 17.6 % (11.6-14.4)
[2024-12-17 07:01] LABS: ALT/SGPT 23.0 U/L (12-78); AST/SGOT 20.0 U/L (15-37); BILIRUBIN TOTAL 0.49 mg/dL (0.3-1.2); BUN CREA RATIO 52.0 (7.0-25.0); CREATININE SERUM 0.66 mg/dL (0.55-1.02); GFR 87.54; GLOBULINA 3.8 G/DL (2.4-3.5); GLUCOSE FASTING 192.0 mg/dL (65-100); OSMOLALITY SERUM 294.0 MOSM/KG (275-295)
[2024-12-17 07:15] LABS: ERYTHROCYTE SEDIMENTATION RATE 38 mm/hr (0-30)
[2024-12-17 08:35] VITALS: BP 140/60
[2024-12-17] MEDS ORDERED: MAGNESIUM SULFATE IN WATER 50 ML IV SCH (08:45)
[2024-12-17] MEDS ORDERED: INSULIN GLARGINE,HUM.REC.ANLOG 1,000 UNITS/10 ML UNITS SUBCUTANEO SCH (09:00)
[2024-12-17] MEDS ORDERED: INSULIN LISPRO 1,000 UNIT/10 ML UNITS SUBCUTANEO SCH (12:00)
[2024-12-17 17:36] VITALS: BP 132/78; O2SAT 98
[2024-12-17] MEDS ORDERED: NA PHOS,M-B/NA PHOS,DI-BA 1 BOTTLE ENEMA RECTAL STA (21:14)
[2024-12-18 04:34] VITALS: BP 145/74; O2SAT 97
[2024-12-18 10:00] VITALS: BP 126/67; O2SAT 97
[2024-12-18 18:22] VITALS: BP 147/77
[2024-12-18] MEDS ORDERED: DIATRIZOATE MEGLUMINE, SODIUM 30 ML BOTTLE PO ONE (22:00)
[2024-12-19 02:12] VITALS: BP 145/71; O2SAT 99
[2024-12-19] MEDS ORDERED: DIATRIZOATE MEGLUMINE, SODIUM 30 ML BOTTLE PO ONE (09:00)
[2024-12-19 09:39] VITALS: BP 122/59
[2024-12-19] MEDS ORDERED: POLYETHYLENE GLYCOL 3350 17 GM BLIST.PACK PO STA (13:17)
[2024-12-19] MEDS ORDERED: NA PHOS,M-B/NA PHOS,DI-BA 1 BOTTLE ENEMA RECTAL STA (14:43)
[2024-12-19] MEDS ORDERED: LACTULOSE 20 G/30 ML BLIST.PACK PO STA (14:44)
[2024-12-19] MEDS ORDERED: MAGNESIUM HYDROXIDE 30 ML BLIST.PACK PO STA (14:44)
[2024-12-19] MEDS ORDERED: MINERAL OIL 30 ML BLIST.PACK PO STA (14:44)
[2024-12-19] MEDS ORDERED: PSYLLIUM HUSK 1 PKT PACKET PO SCH (17:00)
[2024-12-19] MEDS ORDERED: DOCUSATE SODIUM 100MG CAP PO SCH (17:00)
[2024-12-19 18:17] VITALS: BP 190/86; O2SAT 100
[2024-12-19 22:41] VITALS: BP 160/84; O2SAT 98
[2024-12-20 02:01] VITALS: BP 138/72; O2SAT 95
[2024-12-20 03:37] LABS: ob POSITIVE (NEGATIVE)
[2024-12-20] MEDS ORDERED: INSULIN LISPRO 1,000 UNIT/10 ML UNITS SUBCUTANEO SCH (08:00)
[2024-12-20 08:04] VITALS: BP 149/75
[2024-12-20 08:20] LABS: BASO % 0.6 % (0.1-1.2); EOS # 0.26 (0.04-0.54); EOS % 4.8 % (0.7-7.0); LYMPH # 1.30 (1.18-3.74); LYMPH % 24.1 % (19.3-53.1); MEAN PLATELET VOLUME 10.30 fl (9.4-12.4); MONO # 0.51 (0.24-0.82); MONO % 9.5 % (4.7-12.5); NEUT # 3.28 (1.56-6.13); NEUT % 60.8 % (34.0-71.1); RED CELL DISTRIBUTION WIDTH 17.1 % (11.6-14.4)
[2024-12-20 08:51] LABS: ALT/SGPT 32.0 U/L (12-78); AST/SGOT 32.0 U/L (15-37); BILIRUBIN TOTAL 0.46 mg/dL (0.3-1.2); BUN CREA RATIO 51.0 (7.0-25.0); CREATININE SERUM 0.79 mg/dL (0.55-1.02); GFR 71.14; GLOBULINA 4.1 G/DL (2.4-3.5); GLUCOSE FASTING 129.0 mg/dL (65-100); OSMOLALITY SERUM 293.0 MOSM/KG (275-295)
[2024-12-20] MEDS ORDERED: POLYETHYLENE GLYCOL 3350 17 GM BLIST.PACK PO SCH (09:00)
[2024-12-20] MEDS ORDERED: CLOTRIMAZOLE 30 GM TUBE TOP SCH (13:05)
[2024-12-20] MEDS ORDERED: LACTULOSE 20 G/30 ML BLIST.PACK PO STA (14:47)
[2024-12-20] MEDS ORDERED: MAGNESIUM HYDROXIDE 30 ML BLIST.PACK PO STA (14:47)
[2024-12-20] MEDS ORDERED: MINERAL OIL 30 ML BLIST.PACK PO STA (14:47)
[2024-12-20] MEDS ORDERED: CLOTRIMAZOLE 45 GM TUBE VAG SCH (17:00)
[2024-12-20 18:44] VITALS: BP 160/80; O2SAT 97
[2024-12-21 02:04] VITALS: BP 123/67; O2SAT 99
[2024-12-21 08:00] VITALS: BP 117/68
[2024-12-21 18:48] VITALS: BP 170/80
[2024-12-22 02:09] VITALS: BP 148/76; O2SAT 97
[2024-12-22 08:24] VITALS: BP 133/69; O2SAT 95
[2024-12-22] MEDS ORDERED: LACTULOSE 20 G/30 ML BLIST.PACK PO SCH (09:00)
[2024-12-22 16:11] VITALS: BP 145/70; O2SAT 98
[2024-12-23 03:03] VITALS: BP 146/78; O2SAT 96
[2024-12-23 06:14] LABS: BASO % 0.4 % (0.1-1.2); EOS # 0.28 (0.04-0.54); EOS % 5.9 % (0.7-7.0); LYMPH # 1.54 (1.18-3.74); LYMPH % 32.6 % (19.3-53.1); MEAN PLATELET VOLUME 10.90 fl (9.4-12.4); MONO # 0.54 (0.24-0.82); MONO % 11.4 % (4.7-12.5); NEUT # 2.34 (1.56-6.13); NEUT % 49.5 % (34.0-71.1); RED CELL DISTRIBUTION WIDTH 16.7 % (11.6-14.4)
[2024-12-23 06:56] LABS: ALT/SGPT 27.0 U/L (12-78); AST/SGOT 32.0 U/L (15-37); BILIRUBIN TOTAL 0.36 mg/dL (0.3-1.2); BUN CREA RATIO 54.0 (7.0-25.0); CREATININE SERUM 0.72 mg/dL (0.55-1.02); GFR 79.18; GLOBULINA 3.9 G/DL (2.4-3.5); GLUCOSE FASTING 151.0 mg/dL (65-100); OSMOLALITY SERUM 292.0 MOSM/KG (275-295)
[2024-12-23 06:59] LABS: ERYTHROCYTE SEDIMENTATION RATE 45 mm/hr (0-30)
[2024-12-23 09:32] VITALS: BP 153/82
[2024-12-23 19:07] VITALS: BP 149/78; O2SAT 98
[2024-12-24 03:22] VITALS: BP 116/62; O2SAT 96
[2024-12-24 08:46] VITALS: BP 130/63
[2024-12-24 18:29] VITALS: BP 150/82
[2024-12-25 03:35] VITALS: BP 150/84; O2SAT 92
[2024-12-25 06:49] VITALS: O2SAT 99
[2024-12-25 09:18] VITALS: BP 143/82; O2SAT 99
[2024-12-25 09:28] LABS: ABG PH 7.415 (7.35-7.45); ABG PO2 64.5 mmHg (80-100); BICARBONATE 26.5 mmol/l (23-25)
[2024-12-25 09:29] LABS: o2 21 %
[2024-12-25 09:45] LABS: BASO % 0.3 % (0.1-1.2); EOS # 0.09 (0.04-0.54); EOS % 1.5 % (0.7-7.0); LYMPH # 0.46 (1.18-3.74); LYMPH % 7.7 % (19.3-53.1); MEAN PLATELET VOLUME 9.80 fl (9.4-12.4); MONO # 0.31 (0.24-0.82); MONO % 5.2 % (4.7-12.5); NEUT # 5.06 (1.56-6.13); NEUT % 85.0 % (34.0-71.1); RED CELL DISTRIBUTION WIDTH 16.3 % (11.6-14.4)
[2024-12-25 10:22] LABS: ALT/SGPT 35.0 U/L (12-78); AST/SGOT 30.0 U/L (15-37); BILIRUBIN TOTAL 0.54 mg/dL (0.3-1.2); BUN CREA RATIO 49.0 (7.0-25.0); CREATININE SERUM 0.8 mg/dL (0.55-1.02); GFR 70.12; GLOBULINA 4.5 G/DL (2.4-3.5); OSMOLALITY SERUM 293.0 MOSM/KG (275-295)
[2024-12-25 10:23] LABS: GLUCOSE FASTING 235.0 mg/dL (65-100)
[2024-12-25 16:00] VITALS: BP 154/78; O2SAT 99
[2024-12-26 02:42] VITALS: BP 137/73; O2SAT 95
[2024-12-26 09:19] VITALS: BP 145/75; O2SAT 97
[2024-12-26 18:24] VITALS: BP 130/67; O2SAT 98
[2024-12-27 02:24] VITALS: BP 137/78; O2SAT 98
[2024-12-27] MEDS ORDERED: LACTULOSE 20 G/30 ML BLIST.PACK PO SCH (09:00)
[2024-12-27 10:19] VITALS: BP 146/76; O2SAT 97
[2024-12-27 18:50] VITALS: BP 160/75; O2SAT 100
[2024-12-28 02:23] VITALS: BP 122/72; O2SAT 96
[2024-12-28 09:13] VITALS: BP 145/82; O2SAT 96
[2024-12-28] MEDS ORDERED: INSULIN LISPRO 1,000 UNIT/10 ML UNITS SUBCUTANEO SCH (12:00)
[2024-12-28 16:01] VITALS: BP 127/72
[2024-12-29 02:25] VITALS: BP 145/77; O2SAT 98
[2024-12-29 06:16] LABS: BASO % 0.6 % (0.1-1.2); EOS # 0.43 (0.04-0.54); EOS % 8.8 % (0.7-7.0); LYMPH # 1.66 (1.18-3.74); LYMPH % 34.0 % (19.3-53.1); MEAN PLATELET VOLUME 10.30 fl (9.4-12.4); MONO # 0.50 (0.24-0.82); MONO % 10.2 % (4.7-12.5); NEUT # 2.26 (1.56-6.13); NEUT % 46.4 % (34.0-71.1); RED CELL DISTRIBUTION WIDTH 15.8 % (11.6-14.4)
[2024-12-29 06:37] LABS: ALT/SGPT 34.0 U/L (12-78); AST/SGOT 30.0 U/L (15-37); BILIRUBIN TOTAL 0.37 mg/dL (0.3-1.2); BUN CREA RATIO 69.0 (7.0-25.0); CREATININE SERUM 0.72 mg/dL (0.55-1.02); GFR 79.18; GLOBULINA 3.7 G/DL (2.4-3.5); GLUCOSE FASTING 154.0 mg/dL (65-100); OSMOLALITY SERUM 301.0 MOSM/KG (275-295)
[2024-12-29] MEDS ORDERED: APIXABAN 5 MG TABLET PO SCH (09:00)
[2024-12-29 16:42] VITALS: BP 121/67
[2024-12-30 02:03] VITALS: BP 122/71; O2SAT 100
[2024-12-30 09:11] VITALS: BP 128/60; O2SAT 96
[2024-12-30 16:54] VITALS: BP 119/56
[2024-12-31 03:25] VITALS: BP 128/69; O2SAT 95
[2024-12-31 09:49] VITALS: BP 146/74; O2SAT 96
[2024-12-31 18:05] VITALS: BP 146/82
[2025-01-01 03:39] VITALS: BP 126/71
[2025-01-01 05:18] LABS: BASO % 0.3 % (0.1-1.2); EOS # 0.24 (0.04-0.54); EOS % 3.7 % (0.7-7.0); LYMPH # 0.97 (1.18-3.74); LYMPH % 15.0 % (19.3-53.1); MEAN PLATELET VOLUME 9.40 fl (9.4-12.4); MONO # 0.53 (0.24-0.82); MONO % 8.2 % (4.7-12.5); NEUT # 4.68 (1.56-6.13); NEUT % 72.5 % (34.0-71.1); RED CELL DISTRIBUTION WIDTH 14.9 % (11.6-14.4)
[2025-01-01] MEDS ORDERED: INTEGRA PLUS C1 EACH PO (09:21)
[2025-01-01] MEDS ORDERED: ATORVASTATIN CA10 MG PO (09:22)
[2025-01-01] MEDS ORDERED: ATACAND16 MG PO (09:23)
[2025-01-01] MEDS ORDERED: METAMUCIL FIBE3.4 GM PO (09:24)
[2025-01-01] MEDS ORDERED: PANTOPRAZOLE SO40 MG PO (09:24)
[2025-01-01] MEDS ORDERED: INTESTINEX680 M1 PO (09:24)
[2025-01-01] MEDS ORDERED: SIMETHICONE125 M1 PO (09:24)
[2025-01-01] MEDS ORDERED: CARAFATE1 GM PO (09:25)
[2025-01-01] MEDS ORDERED: INSULIN LI100 UNIT/1 SUBCUTANEO (09:27)
[2025-01-01] MEDS ORDERED: LEVOTHYROXINE75 MCG PO (09:28)
[2025-01-01] MEDS ORDERED: PROTEINEX-18 LI30 ML PO (09:29)
[2025-01-01] MEDS ORDERED: LYRICA50 MG PO (09:29)
[2025-01-01] MEDS ORDERED: ELIQUIS5 MG PO (09:30)
[2025-01-01 10:16] VITALS: BP 144/72; O2SAT 99
[2025-01-01 18:05] VITALS: BP 140/80
== END 2025-01-01 19:17 | disposition home or self-care (01) | DRG 580 ==
LOC: ER 20:01 → MEDJ 11-18 08:23 → SEC-K 11-18 08:23 → MEDI 11-18 08:23 → MEDJ 11-19 17:01
PROVIDERS: Internal Medicine; Internal Medicine Hematology & Oncology; Internal Medicine Infectious Disease; ADMIT Internal Medicine; ATTEND Internal Medicine
PROC: 0JBQ3ZZ Excision of Right Foot Subcutaneous Tissue and Fascia, Percutaneous Approach (ICD-10-PCS; principal; 2024-11-18)
PROC: B54DZZZ Ultrasonography of Bilateral Lower Extremity Veins (ICD-10-PCS; 2024-11-18)
PROC: B44HZZZ Ultrasonography of Bilateral Lower Extremity Arteries (ICD-10-PCS; 2024-11-18)
PROC: 0JBR3ZZ Excision of Left Foot Subcutaneous Tissue and Fascia, Percutaneous Approach (ICD-10-PCS; 2024-11-18)
PROC: 8E0ZXY6 Isolation (ICD-10-PCS; 2024-11-19)
PROC: BQ3MZZZ Magnetic Resonance Imaging (MRI) of Left Foot (ICD-10-PCS; 2024-11-20)
PROC: 02HV33Z Insertion of Infusion Device into Superior Vena Cava, Percutaneous Approach (ICD-10-PCS; 2024-11-23)
PROC: 0JBQ3ZZ Excision of Right Foot Subcutaneous Tissue and Fascia, Percutaneous Approach (ICD-10-PCS; 2024-11-25)
PROC: 0JBR3ZZ Excision of Left Foot Subcutaneous Tissue and Fascia, Percutaneous Approach (ICD-10-PCS; 2024-11-25)
PROC: 4A12X4Z Monitoring of Cardiac Electrical Activity, External Approach (ICD-10-PCS; 2024-11-27)
PROC: BW40ZZZ Ultrasonography of Abdomen (ICD-10-PCS; 2024-12-04)
PROC: 0JBR3ZZ Excision of Left Foot Subcutaneous Tissue and Fascia, Percutaneous Approach (ICD-10-PCS; 2024-12-09)
PROC: 0JBQ3ZZ Excision of Right Foot Subcutaneous Tissue and Fascia, Percutaneous Approach (ICD-10-PCS; 2024-12-09)
PROC: 0JBR3ZZ Excision of Left Foot Subcutaneous Tissue and Fascia, Percutaneous Approach (ICD-10-PCS; 2024-12-16)
PROC: BW21ZZZ Computerized Tomography (CT Scan) of Abdomen and Pelvis (ICD-10-PCS; 2024-12-18)
PROC: 0JBR3ZZ Excision of Left Foot Subcutaneous Tissue and Fascia, Percutaneous Approach (ICD-10-PCS; 2024-12-23)
PROC: 0JBQ3ZZ Excision of Right Foot Subcutaneous Tissue and Fascia, Percutaneous Approach (ICD-10-PCS; 2024-12-23)
PROC: 30233N1 Transfusion of Nonautologous Red Blood Cells into Peripheral Vein, Percutaneous Approach (ICD-10-PCS; 2024-12-30)
PROC: 0JBR3ZZ Excision of Left Foot Subcutaneous Tissue and Fascia, Percutaneous Approach (ICD-10-PCS; 2024-12-30)
PROC: 0JBQ3ZZ Excision of Right Foot Subcutaneous Tissue and Fascia, Percutaneous Approach (ICD-10-PCS; 2024-12-30)
DX: L97.428 Non-pressure chronic ulcer of left heel and midfoot with other specified severity (principal); E87.1 Hypo-osmolality and hyponatremia; L97.528 Non-pressure chronic ulcer of other part of left foot with other specified severity; E11.621 Type 2 diabetes mellitus with foot ulcer; L97.518 Non-pressure chronic ulcer of other part of right foot with other specified severity; Z79.4 Long term (current) use of insulin; I87.8 Other specified disorders of veins; E03.8 Other specified hypothyroidism; D64.9 Anemia, unspecified; I27.20 Pulmonary hypertension, unspecified; D72.828 Other elevated white blood cell count; B95.62 Methicillin resistant Staphylococcus aureus infection as the cause of diseases classified elsewhere; E11.65 Type 2 diabetes mellitus with hyperglycemia; M19.072 Primary osteoarthritis, left ankle and foot; I11.0 Hypertensive heart disease with heart failure; I50.9 Heart failure, unspecified; K59.09 Other constipation; R60.0 Localized edema; L08.89 Other specified local infections of the skin and subcutaneous tissue